=== PATIENT | female | born 1960 | race Caucasian/White ===

== ENCOUNTER 2016-10-28 08:45 | Observation (INO) | payer OTHER ==
[~2016-10-28] VITALS: Ht 162.6 cm; Wt 162.0 kg
[~2016-10-28 08:45] MED LIST: ALBUTEROL-200 PUFFS/ INH; AMIODARONE 200200 MG PO; ASPIRIN325 M1 PO; ATENOLOL25 MG PO; ATENOLOL50 MG PO; B COMPLETE1 EACH PO; B COMPLEX1 TA1 PO; BISOPROLOL FUMA10 MG PO; CARDIZEM120 MG PO; CIPRO 500MG TA500 MG PO; COREG12.5 MG PO; COREG25 MG PO; DIGOXIN0.125 MG PO; ELIQUIS5 MG PO; FUROSEMIDE80 MG PO; HYDROCHLOROTHIA25 M1 PO; HYDROCHLOROTHIA50 MG PO; KLOR-CON 1010 MEQ PO; KLOR-CON M2020 MEQ PO; LANOXIN0.125 MG PO; LASIX80 MG PO; LEVAQUIN750 MG PO; LIPITOR40 MG PO; LISINOPRIL 10MG10 MG PO; LISINOPRIL 5MG T5 MG PO; LORTAB 5/500 501 TAB PO; LOSARTAN POTASS50 MG PO; MASON NATURAL500 M1 PO; MEDROL 4MG. DOSE4 MG PO; MELOXICAM7.5 MG PO; METFORMIN 500M500 M1 PO; METFORMIN 500M500 MG PO; METOPROLOL25 MG PO; MULTI VITAMINS1 TAB PO; Monodox100 MG PO; NYSTATIN CREAM15 GM EX; OMNICEF 300 MG300 MG PO; OXYGEN IH; POTASSIUM CHLO20 ME2 PO; PRAVACHOL 40MG40 MG PO; PREDNISONE 10MG10 MG PO; PREDNISONE20 MG PO; SERTRALINE 50MG50 MG PO; SYMBICORT1 AE1 IH; TESSALON PERLE100 MG PO; TURMERIC500 MG PO; XARELTO10 MG PO
--- NOTE | 2016-10-28 08:50 | Emergency Room Report ---
History of Present Illness Time Seen by [id number] Presenting Problem in Triage Pt arrived: Presenting Problem: Onset of symptoms date/time:/ or onset unknown for: Treatment Prior to Arrival: [employer]RIAL [employer] Provided by: Sepsis Risk Assessment: Temp: B/P: MAP: Pulse: Resp: Recent fever? Clinical Suspician of Infection? Mental Status: Sepsis Risk: Have you (or family members/close friends) recently traveled outside the [place]? If Yes, where/when: Have you had exposure to infectious disease within the past month? TB? Other? Specify: Source patient, RN/MD, EMS Exam Limitations no limitations Comment Pt is here in the ER for evaluation from home via EMS c/o generalized weakness, difficulty mentating and having an increase in SOB. Pt presented as a stroke alert and went immediately to CT. CT head w/o contrast was negative for acute changes. 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 She last worked yesterday and was doing okay prior to going to bed. She wears O2 at night and CPAP. Pt woke up this morning feeling more SOB. She has a history of CHF/COPD. She denies chest pain. She also states she has been difficulty expressing her thoughts. No aphasia. No abdominal pain. Increase in chronic bilateral leg/pedal edema. Pt has not taken any of her morning medicines. 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) Penicillins (Mild, 07/03/16) codeine (Mild, 07/03/16) promethazine (Mild, 07/03/16) Home Medications Active Scripts Metformin HCl (Metformin) 500 MG PO BID #60 TAB Ref 2 Prov: 04/13/14 Nystatin (Nystatin Cream 15GM) 1 SALINA EX QID #30 GM Prov: 08/19/16 Prednisone (Prednisone 20MG Tab) 40 MG PO DAILY #14 TAB Prov: 08/19/16 Device (Oxygen (Concentrator)) 1 UNIT IH NIGHT ONLY #1 DEV Ref 5 Prov: 08/19/16 Reported Medications Apixaban (Eliquis) 5 MG PO BID BENZONATATE (Benzonatate) 100 MG PO TID PRN COUGH Furosemide (Furosemide) 40 MG PO BIDL BUDESONIDE/FORMOTEROL FUMARATE (Symbicort 160-4.5 Mcg Inhaler) 2 PUFF IH BID Meloxicam (Meloxicam 7.5MG) 7.5 MG PO DAILY Potassium Chloride (Klor-Con M20) 20 MEQ PO BID CINNAMON BARK (Cinnamon) 500 MG PO BID Turmeric Root Extract (Turmeric) 500 MG PO BID Vitamin B Complex (B Complete) 1 EACH PO DAILY Atorvastatin Calcium (Atorvastatin) 40 MG PO QHS Losartan Potassium (Losartan 50MG) 50 MG PO BID Bisoprolol Fumarate 10 MG PO BID History Medical History General CAD? No Angina: Yes [place]: No Hypertension? Yes Hyperlipidemia? Yes CHF? Yes DVT? No PE? No COPD? Yes Asthma? Yes Anemia? No GERD? No Gastric ulcers? No GI Bleed? No Hernia? No Thyroid Problems? No Hypothyroidism? No CVA? No Seizures? No Diabetes? Yes Insulin Dependent: No Insulin Pump: No Home FSBS? Yes Renal Insuffiency? No End Stage Renal Disease? No UTI? No Stones? No BPH? No GB Disease: No Nephritic Syndrome? No Asplenia? No Hepatitis? No Sickle Cell Disease? No Arthritis? No Migraines? No Cataracts? No Glaucoma? No MRSA? No HIV? No TB? No Anxiety? No Depression? No Cancer? No More? Yes Additional hx: RA Immunization Hx DT/Tetanus 1-4 Years Ago Flu Refused Pneumonia REFUSED Surgical Hx Previous Surgery?Y Tubal Ligation Tonsils R KNEE ARTROSCOPY WRIST R ELBOW Family History Family Hx Diabetes Yes CAD Yes Hypertension Yes Hyperlipidemia Yes Cancer No TB No Social History Smoking Hx Packs/day N/A Alcohol Alcohol: No Review of Systems All Other Systems Reviewed and Negative Constitutional see HPI, weakness Eyes denies no symptoms reported ENT denies: no symptoms reported. Respiratory see HPI, cough (occasional nonproductive), shortness of breath, wheezing Cardiovascular see HPI, denies chest pain, edema, denies syncope Gastrointestinal denies no symptoms reported Genitourinary denies: no symptoms reported. Musculoskeletal denies no symptoms reported Skin change in color (bilateral LE erythema) Psychiatric/Neurological denies no symptoms reported Physical Exam Vital Signs Vital Signs Date Time Temp Pulse Resp B/P Pulse O2 O2 Flow FiO2 Ox Delivery Rate 10/28 1105 79 16 130/74 100 4 10/28 1012 73 16 134/84 99 4 10/28 0927 95 10/28 0916 98.4 90 16 139/64 95 4 General Appearance mild distress (sob) Eye Exam - bilateral eye normal exam Ear, Nose, Throat normal ENT inspection Neck normal inspection, supple, full range of motion Respiratory Status Yes: trachea midline, chest symmetrical. No: respiratory distress. Lung Sounds posterior: wheezing. bilateral: decreased breath sounds. left: wheezing. Cardiovascular irregularly irregular, distant heart sounds Peripheral Pulses Pulses normal Yes Gastrointestinal normal bowel sounds, soft, no guarding, no rebound, obese Extremities (+) significant nonpitting edema to bilateral feet/ankles/legs extending to thighs bilaterally. Rectal deferred Pelvic deferred Neurologic alert, segment block layer II-XII nml as tested, normal exam, no motor/sensory deficits, oriented x 3, NIH stroke scale is 0 Glascow Coma Scale Glascow Coma Scale Response Value EYE response: 4 Spontaneously 4 MOTOR response: 6 OBEYS 6 VERBAL response: 5 Oriented & Converses 5 Total 15 Mental status normal mood/affect Skin chronic stasis changes to bilateral legs Medical Decision Making LABS/Meds/Orders Pt receiving controlled substance in ED? No Results/Orders Laboratory Tests 10/28/16 0950: Urine Color YELLOW, Urine Appearance CLEAR, Urine pH 5.5, Ur Specific [place] 1.010, Urine Protein NEGATIVE, Urine Ketones NEGATIVE, Urine Blood NEGATIVE, Urine Nitrate NEGATIVE, Urine Bilirubin NEGATIVE, Urine Urobilinogen 0.2, Ur Leukocyte Esterase NEGATIVE, Urine WBC OCC, Urine Bacteria 1+, Urine Mucus 2+, Urine Glucose NEGATIVE 10/28/16 0945: POC Glucose 134 H 10/28/16 0600: Creatine Kinase 119, CK-MB (CK-2) Rel Index 0.4, CK and CKMB Interp 0.5, Troponin I < 0.02 10/28/16 0600: Sodium 139, Potassium 5.5 H, Chloride 105, Carbon Dioxide 28, BUN 19 H, Creatinine 0.7, Estimated GFR (MDRD) 87, Glucose 133 H, Calcium 8.7 10/28/16 0600: B-Natriuretic Peptide 127 H 10/28/16 0600: Sodium 140, Potassium 5.5 H, Chloride 104, Carbon Dioxide 25, BUN 19 H, Creatinine 0.7, Estimated Creat Clear 225 H, Estimated GFR (MDRD) 87, Glucose 132 H, Calcium 8.8, Total Bilirubin 0.8, AST 38 H, ALT 25, Alkaline Phosphatase 114, Total Protein 7.4, Albumin 3.1 L, Globulin 4.3 H, Albumin/ Globulin Ratio 0.7 L, PT 11.4, INR 1.07, APTT 31.0, WBC 9.1, RBC 4.14 L, Hgb 12.1 L, Hct 39.0, MCV 94.3, RDW 14.7, Plt Count 281, MPV 5.7 L, Gran % 77.4, Gran # 7.0, Lymphocytes % 14.0, Monocytes % 4.3, Eosinophils % 3.7, Basophils % 0.5, Lymphocytes # 1.3, Monocytes # 0.4, Eosinophils # 0.3, Basophils # 0.1, PUBS MCHC 31.0 L, MCH 29.2 Current Medication Orders Sig/Melissa Start time Last Medication Dose Route Stop Time Status Admin Bumetanide 1 MG ONCE ONE 10/28 929 DC 10/28 IV 10/28 0931 0946 Furosemide 40 MG ONCE ONE 10/28 0930 DC 10/28 IV 10/28 0931 0946 Sodium Chloride 10 ML PRN PRN 10/28 0900 AC IV 10/29 0853 Orders Procedure Date/time Status DIET-NOTHING BY MOUTH 10/28 L Active CARDIAC ENZYMES 10/28 1300 Active Decision to admit 10/28 1110 Active BRAIN NATRIURETIC PEPTIDE 10/28 1024 Complete CARDIAC ENZYMES 10/28 1000 Complete FINGERSTICK BLOOD SUGAR 10/28 0945 Complete URINARY CATHETER INSERT 10/28 0919 Active URINALYSIS/COMPLETE 10/28 0919 Complete ELECTROCARDIOGRAM REQUEST 10/28 0914 Active PULSE OXIMETRY REQUEST 10/28 0914 Active IV SALINE LOCK 10/28 0914 Active OXYGEN PER NURSE 10/28 0914 Active RN OPERATING ROOM 10/28 0914 Active COMPLETE METABOLIC PANEL 10/28 0914 Complete ELECTROCARDIOGRAM REQUEST 10/28 0903 Active 12 LEAD EKG-BESSON (INITIAL) 10/28 0900 Active FSBS REQUEST BY CARE AREA 10/28 0853 Active CHEST-PORTABLE 10/28 0850 Active PARTIAL THROMBOPLASTIN TIME 10/28 0850 Complete PROTHROMBIN TIME 10/[address] HEAD REQ 10/28 0849 Complete CBC WITH AUTO DIFF 10/28 0849 Complete BASIC METABOLIC PROFILE 10/28 0849 Complete Laboratory Tests 10/28/16 0945: POC Glucose 134 10/28/16 0600: Creatine Kinase 119, CK-MB (CK-2) Rel Index 0.4, CK and CKMB Interp 0.5, Troponin I < 0.02 10/28/16 0600: Sodium 139, Potassium 5.5, Chloride 105, Carbon Dioxide 28, BUN 19, Creatinine 0.7, Estimated GFR (MDRD) 87, Glucose 133, Calcium 8.7 10/28/16 0600: Sodium 140, Potassium 5.5, Chloride 104, Carbon Dioxide 25, BUN 19, Creatinine 0.7, Estimated Creat Clear 225, Estimated GFR (MDRD) 87, Glucose 132, Calcium 8.8, Total Bilirubin 0.8, AST 38, ALT 25, Alkaline Phosphatase 114, Total Protein 7.4, Albumin 3.1, Globulin 4.3, Albumin/Globulin Ratio 0.7, PT 11.4, INR 1.07, APTT 31.0, WBC 9.1, RBC 4.14, Hgb 12.1, Hct 39.0, MCV 94.3, RDW 14.7, Plt Count 281, MPV 5.7, Gran % 77.4, Gran # 7.0, Lymphocytes % 14.0, Monocytes % 4.3 , Eosinophils % 3.7, Basophils % 0.5, Lymphocytes # 1.3, Monocytes # 0.4, Eosinophils # 0.3, Basophils # 0.1, PUBS MCHC 31.0, MCH 29.2 (DOBAY, III, D.O., KAROLY) 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 CHF changes with increase in lung markings and some blunting of left costophrenic angle. CT head (w/o contrast) CT interpretation by discussed w/radiologist (radiologist report reviewed.) CT Results normal/NAD, no acute changes. Consult MD Physician Consult Time Called 1110 Reason Admission Comments Case discussed with Dr. Vega and he has agreed to accept care/admission of patient. Pt admitted to observation with telemetry. Departure Departure Time of Disposition 1111 Disposition Still a Patient Clinical Impression Primary Impression: Acute congestive heart failure Qualifiers: Congestive heart failure type: unspecified congestive heart failure type Qualified Code: I50.9 - Heart failure, unspecified Secondary Impressions: Chronic atrial fibrillation, Generalized weakness, Peripheral edema, Shortness of breath Condition STABLE Discharge Counseling Counseled pt/family regarding diagnosis, test results, Need for admission. ED Critical Care Critical Care No at [id number]
[2016-10-28 09:04] LABS: HEMOGLOBIN 12.1 g/dL (12.2-16.2); LYMPH # 1.3 K/mm3 (0.7-4.5)
[2016-10-28 09:06] LABS: BUN 19 mg/dL (7-18); GFR (ESTIMATED) 87 ML/MIN (59-)
--- NOTE | 2016-10-28 09:13 | RADIOLOGY REPORT PS360 ---
CT HEAD W/O CONTRAST HISTORY: Facial tingling with speech problems, right facial droop STROKE ALERT ORDERING PHYSICIAN: Ga KAUR III PATIENT AGE: 56 years COMPARISON: 07/03/2016 TECHNIQUE: Axial images obtained without contrast. Brain and bone windows reviewed. FINDINGS: No midline shift, mass effect, intracranial hemorrhage, hydrocephalus, or extra-axial fluid collection is evident. There is some mild beam hardening artifact in this posterior fossa from the patient's neck less which could obscure subtle abnormalities. The calvarium has an unremarkable appearance. No mastoid effusion. Mild mucosal thickening of the ethmoid sinuses.. IMPRESSION: 1. No acute hemorrhage or midline shift. Unremarkable unenhanced CT head with some limitations from artifact in the posterior fossa which could obscure subtle abnormalities. 2. There is no evidence of intracranial hemorrhage, focal mass, or acute territorial infarction. A negative CT does not exclude an acute CVA. A follow-up head CT or MRI is recommended if neurological symptoms persist .
[2016-10-28 09:16] VITALS: BP 139/64
[2016-10-28 09:58] LABS: URINE BILIRUBIN - DIPSTICK NEGATIVE (NEG); URINE BLOOD NEGATIVE (NEG)
--- NOTE | 2016-10-28 11:47 | HISTORY AND PHYSICAL REPORT ---
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 Patient states she had difficulty mentating and felt somewhat cloudy mentally. In addition to this she felt like the RIGHT side of her face was sliding off. She has no history of stroke or TIA. She does have atrial fibrillation for which she takes Eliquis 5 mg twice a day. Her core inserter is Dr. Fernando Terry in [place]. Patient presented to the emergency department and was rapidly scanned to make sure she was not having a stroke. CT scan of the head was negative. Oxygen was applied to the patient which she does use at home. She slowly became more alert and at the time of my interview feels back to baseline mentally. She is does continue states she feels like she has a RIGHT facial abnormality although her exam has been normal. Workup as written been relatively unremarkable except for what appears to be mild hypervolemia on her chest x-ray. Patient has been given Lasix and Bumex and has put out 2 L of urine that is clear and yellow. Her feet are swollen but she states this is how they normally look after 5 consecutive days of work. She does not really have any complaint of shortness of breath. Past medical history: Family HX Family Hx Insignificant No Diabetes Yes CAD Yes Hypertension Yes Hyperlipidemia Yes Cancer No TB No Immunization HX DT/Tetanus 1-4 Years Ago Flu Refused Pneumonia REFUSED General CAD? No Angina: Yes [place]: No Hypertension? Yes Hyperlipidemia? Yes CHF? Yes DVT? No PE? No COPD? Yes Asthma? Yes Anemia? No GERD? No Gastric ulcers? No GI Bleed? No Hernia? No Thyroid Problems? No Hypothyroidism? No CVA? No Seizures? No Diabetes? Yes Insulin Dependent: No Insulin Pump: No Home FSBS? Yes Renal Insuffiency? No UTI? No Stones? No BPH? No GB Disease: No Nephritic Syndrome? No Asplenia? No Hepatitis? No Sickle Cell Disease? No Arthritis? No Migraines? No Cataracts? No Glaucoma? No MRSA? No HIV? No TB? No Anxiety? No Depression? No Cancer? No More? 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 Current home meds: Active Scripts Metformin HCl (Metformin) 500 MG PO BID #60 TAB Ref 2 Prov: 04/13/14 Nystatin (Nystatin Cream 15GM) 1 SALINA EX QID #30 GM Prov: 08/19/16 Prednisone (Prednisone 20MG Tab) 40 MG PO DAILY #14 TAB Prov: 08/19/16 Device (Oxygen (Concentrator)) 1 UNIT IH NIGHT ONLY #1 DEV Ref 5 Prov: 08/19/16 Reported Medications Apixaban (Eliquis) 5 MG PO BID BENZONATATE (Benzonatate) 100 MG PO TID PRN COUGH Furosemide (Furosemide) 40 MG PO BIDL BUDESONIDE/FORMOTEROL FUMARATE (Symbicort 160-4.5 Mcg Inhaler) 2 PUFF IH BID Meloxicam (Meloxicam 7.5MG) 7.5 MG PO DAILY Potassium Chloride (Klor-Con M20) 20 MEQ PO BID CINNAMON BARK (Cinnamon) 500 MG PO BID Turmeric Root Extract (Turmeric) 500 MG PO BID Vitamin B Complex (B Complete) 1 EACH PO DAILY Atorvastatin Calcium (Atorvastatin) 40 MG PO QHS Losartan Potassium (Losartan 50MG) 50 MG PO BID Bisoprolol Fumarate 10 MG PO BID Social Hx: Smoking HX Tobacco No Packs/day N/A Alcohol Alcohol: No Hx of Drug Use Drug Use? No Patien't marital status is Patient's support system is good Review of systems: Constitutional weakness. No: chills, diaphoresis, fever. Respiratory No: cough, orthopnea, shortness of breath. Cardiovascular no symptoms reported Gastrointestinal/Abdominal no symptoms reported Genitourinary no symptoms reported. Musculoskeletal no symptoms reported. Neurological Yes: weakness. Exam: Lab data for last 24 hours: Laboratory Tests 10/28/16 0950: Urine Color YELLOW, Urine Appearance CLEAR, Urine pH 5.5, Ur Specific [place] 1.010, Urine Protein NEGATIVE, Urine Ketones NEGATIVE, Urine Blood NEGATIVE, Urine Nitrate NEGATIVE, Urine Bilirubin NEGATIVE, Urine Urobilinogen 0.2, Ur Leukocyte Esterase NEGATIVE, Urine WBC OCC, Urine Bacteria 1+, Urine Mucus 2+, Urine Glucose NEGATIVE 10/28/16 0945: POC Glucose 134 H 10/28/16 0600: Creatine Kinase 119, CK-MB (CK-2) Rel Index 0.4, CK and CKMB Interp 0.5, Troponin I < 0.02 10/28/16 0600: Sodium 139, Potassium 5.5 H, Chloride 105, Carbon Dioxide 28, BUN 19 H, Creatinine 0.7, Estimated GFR (MDRD) 87, Glucose 133 H, Calcium 8.7 10/28/16 0600: B-Natriuretic Peptide 127 H 10/28/16 0600: Sodium 140, Potassium 5.5 H, Chloride 104, Carbon Dioxide 25, BUN 19 H, Creatinine 0.7, Estimated Creat Clear 225 H, Estimated GFR (MDRD) 87, Glucose 132 H, Calcium 8.8, Total Bilirubin 0.8, AST 38 H, ALT 25, Alkaline Phosphatase 114, Total Protein 7.4, Albumin 3.1 L, Globulin 4.3 H, Albumin/ Globulin Ratio 0.7 L, PT 11.4, INR 1.07, APTT 31.0, WBC 9.1, RBC 4.14 L, Hgb 12.1 L, Hct 39.0, MCV 94.3, RDW 14.7, Plt Count 281, MPV 5.7 L, Gran % 77.4, Gran # 7.0, Lymphocytes % 14.0, Monocytes % 4.3, Eosinophils % 3.7, Basophils % 0.5, Lymphocytes # 1.3, Monocytes # 0.4, Eosinophils # 0.3, Basophils # 0.1, PUBS MCHC 31.0 L, MCH 29.2 Admission vital signs: 1ST Vital Signs Result Date Time Pulse Ox 95 10/29 915 B/P 139/64 10/29 915 O2 Flow Rate 4 10/29 915 Temp 98.4 10/29 915 Pulse 90 10/29 915 Resp 16 10/29 915 Exam General appearance: alert, active, awake, no acute distress Eyes: conjunctiva clear, PERRLA ENT: mucous membranes moist Cardiovascular: irregularly irregular Respiratory: overall clear with faint expiratory wheeze in the LEFT posterior upper lung. Lung bases did not have any rales ABD: soft, no tenderness Genitourinary: catheter in place Extremities: edema (2+ bilateral feet and lower le) Plan: Problem List 1. Peripheral edema 2. Chronic atrial fibrillation 3. Acute congestive heart failure 4. Mental status change 5. Obstructive sleep apnea Plan: Patient appears mildly fluid overloaded and started having excellent response to diuretics. She will be admitted for observation and given additional doses of intravenous Lasix. There is a good chance she will be able to be discharged tomorrow. As the etiology of her mental status changes she will be admitted for observation. Patient may have become hypoxic overnight or even hypercapnic as she does use C Pap at home with oxygen attached. At this point she seems to return to baseline.
--- NOTE | 2016-10-28 12:14 | RADIOLOGY REPORT PS360 ---
CHEST-PORTABLE HISTORY: Shortness of breath with wheezing, CHF STROKE ALERT ORDERING PHYSICIAN: Ga KAUR III PATIENT AGE: 56 years COMPARISON: 08/14/2016 FINDINGS: There is cardiomegaly with mild pulmonary venous congestion suggesting mild CHF. No lobar consolidation or collapse.. The lungs are clear without infiltrates, suspicious nodules, or pleural effusions. No acute bony abnormalities. IMPRESSION: No change mild CHF
[2016-10-28 14:03] VITALS: BP 138/79
[2016-10-28 14:20] VITALS: BP 138/79
[2016-10-28 16:27] VITALS: BP 130/88
[2016-10-28 20:22] VITALS: BP 120/59
[2016-10-29 04:23] VITALS: BP 108/62
--- NOTE | 2016-10-29 07:46 | DISCHARGE SUMMARY STANDARD ---
Demographics Admit date: 10/28/16 Discharge date: 10/29/16 History of present illness History of present illness 56-year-old female with asthma, atrial fibrillation and morbid obesity presented to the emergency department after awakening around 7:30 this morning and not feeling RIGHT. Patient states she had difficulty mentating and felt somewhat cloudy mentally. In addition to this she felt like the RIGHT side of her face was sliding off. She has no history of stroke or TIA. She does have atrial fibrillation for which she takes Eliquis 5 mg twice a day. Her blueprint maker is Dr. Fernando Terry in [place]. Patient presented to the emergency department and was rapidly scanned to make sure she was not having a stroke. CT scan of the head was negative. Oxygen was applied to the patient which she does use at home. She slowly became more alert and at the time of my interview feels back to baseline mentally. She is does continue states she feels like she has a RIGHT facial abnormality although her exam has been normal. Workup as written been relatively unremarkable except for what appears to be mild hypervolemia on her chest x-ray. Patient has been given Lasix and Bumex and has put out 2 L of urine that is clear and yellow. Her feet are swollen but she states this is how they normally look after 5 consecutive days of work. She does not really have any complaint of shortness of breath. Hospital Course Hospital Course: Patient was admitted overnight as per Dr. Vega note. She was diureses to over 5 L of fluid and this morning feels much better. She feels her breathing is improved and she wishes to go home. Anterior lung mendiola are clear. Abdomen soft, heart rate irregular. Patient will be discharged home with her regular oxygen at home, I will ask that she stay home from work tomorrow, focus on low salt diet, followup with her blueprint maker scheduled and with her primary care office this week Discharge diagnoses Problem List 1. Peripheral edema 2. Chronic atrial fibrillation 3. Acute congestive heart failure 4. Mental status change 5. Obstructive sleep apnea Medications Medications: Discharge meds are as noted. Follow up Follow up in office in: 5 DAYS with: Jhonatan Vega MD at [phone]
--- NOTE | 2016-10-29 07:46 | DISCHARGE SUMMARY STANDARD ---
Demographics Admit date: 10/28/16 Discharge date: 10/29/16 History of present illness History of present illness 56-year-old female with asthma, atrial fibrillation and morbid obesity presented to the emergency department after awakening around 7:30 this morning and not feeling RIGHT. Patient states she had difficulty mentating and felt somewhat cloudy mentally. In addition to this she felt like the RIGHT side of her face was sliding off. She has no history of stroke or TIA. She does have atrial fibrillation for which she takes Eliquis 5 mg twice a day. Her check writer is Dr. Fernando Terry in [place]. Patient presented to the emergency department and was rapidly scanned to make sure she was not having a stroke. CT scan of the head was negative. Oxygen was applied to the patient which she does use at home. She slowly became more alert and at the time of my interview feels back to baseline mentally. She is does continue states she feels like she has a RIGHT facial abnormality although her exam has been normal. Workup as written been relatively unremarkable except for what appears to be mild hypervolemia on her chest x-ray. Patient has been given Lasix and Bumex and has put out 2 L of urine that is clear and yellow. Her feet are swollen but she states this is how they normally look after 5 consecutive days of work. She does not really have any complaint of shortness of breath. Hospital Course Hospital Course: Patient was admitted overnight as per Dr. Vega note. She was diureses to over 5 L of fluid and this morning feels much better. She feels her breathing is improved and she wishes to go home. Anterior lung mendiola are clear. Abdomen soft, heart rate irregular. Patient will be discharged home with her regular oxygen at home, I will ask that she stay home from work tomorrow, focus on low salt diet, followup with her check writer scheduled and with her primary care office this week Discharge diagnoses Problem List 1. Peripheral edema 2. Chronic atrial fibrillation 3. Acute congestive heart failure 4. Mental status change 5. Obstructive sleep apnea Medications Medications: Discharge meds are as noted. Follow up Follow up in office in: 5 DAYS with: Jhonatan Vega MD at [phone]
[2016-10-29 08:37] VITALS: BP 134/70
--- NOTE | 2016-10-29 09:20 | PHARMACY CLINIC NOTE ---
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 Patient's VTE score: 3 Patient's VTE Risk: LOW RISK Clinical trial participant? No VTE prophylaxis [id number] VTE prophylaxis ordered? Yes Type of prophylaxis/treatment: JUWAN (ON ELIQUIS (HOME MED)) at 0920
[2016-10-29 11:12] VITALS: BP 134/70
--- OUTSIDE RECORDS SUMMARY | 2016-10-30 15:04 | External Medical Summary Rpt ---
Author Author [employer] Organization [employer] Address Unknown Phone Unavailable Purpose Continuity of Care Document - through 2016
--- OUTSIDE RECORDS SUMMARY | 2016-10-30 15:04 | External Medical Summary Rpt ---
Author Author [employer] Barbosa, [employer] Organization [employer] Address Unknown Phone Unavailable
--- OUTSIDE RECORDS SUMMARY | 2016-10-30 15:04 | External Medical Summary Rpt ---
Demographics Preferred Language Libyan Marital Status Unknown Jehovah'S Witness Affiliation Unknown Race Unknown Ethnic Group Unknown Author Author , Organization [facility] Address Unknown Phone Unavailable Purpose Continuity of Care Document - through 2016 Immunization No patient found.
--- OUTSIDE RECORDS SUMMARY | 2016-10-30 15:04 | External Medical Summary Rpt ---
Author Author , Organization [facility] Address Unknown Phone Unavailable Purpose Continuity of Care Document - through 2016 Problems Code Diagnosis DOS Provider Status I48.2 CHRONIC ATRIAL FIBRILLATIO N I48.91 UNSPECIFIED ATRIAL FIBRILLATIO N I50.9 HEART FAILURE, UNSPECIFIED R06.00 DYSPNEA, UNSPECIFIED R06.02 SHORTNESS OF BREATH R07.9 CHEST PAIN, UNSPECIFIED R53.1 WEAKNESS R60.9 EDEMA, UNSPECIFIED
--- OUTSIDE RECORDS SUMMARY | 2016-10-30 15:04 | External Medical Summary Rpt ---
Demographics Preferred Language Namibian Marital Status Unknown Baptist Affiliation Unknown Race Unknown Ethnic Group Unknown Author Author , Organization [facility] Address Unknown Phone Unavailable Purpose Continuity of Care Document - through 2016 Immunization No patient found.
--- OUTSIDE RECORDS SUMMARY | 2016-10-30 15:05 | External Medical Summary Rpt ---
Demographics Preferred Language Mongolian Marital Status Unknown Mu-Ism Affiliation Unknown Race Unknown Ethnic Group Unknown Author Author , Organization [facility] Address Unknown Phone Unavailable Purpose Continuity of Care Document - through 2016 Immunization No patient found.
--- OUTSIDE RECORDS SUMMARY | 2016-10-30 15:05 | External Medical Summary Rpt ---
Demographics Preferred Language Iranian Marital Status Unknown Shinto Affiliation Unknown Race Unknown Ethnic Group Unknown Author Author , Organization [facility] Address Unknown Phone Unavailable Purpose Continuity of Care Document - through 2016 Immunization No patient found.
== END 2016-10-29 09:54 | disposition home or self-care (01) ==
LOC: ER 08:45 → 2ND 11:14
PROVIDERS: Emergency Medicine; Family Medicine
DX: I50.9 Heart failure, unspecified (principal); I10 Essential (primary) hypertension; I48.91 Unspecified atrial fibrillation; E11.9 Type 2 diabetes mellitus without complications; G47.33 Obstructive sleep apnea (adult) (pediatric); R41.82 Altered mental status, unspecified
CPT/HCPCS: G0378

== ENCOUNTER → 2017-01-10 | Outpatient (CLI) | payer OTHER ==
--- NOTE | 2017-01-17 10:37 | RADIOLOGY REPORT PS360 ---
DIG MAMM-DX MATY W/AVWS W/CAD CAD Screening COMPARISON: Digital mammograms 06/22/2011 INDICATION: There is no personal or family history of breast cancer. Patient was with possible new lung right breast TECHNIQUE: Standard CC and MLO images were obtained. R2 CAD reviewed. FINDINGS: The breasts are composed primarily of fat with very minimal scattered fibroglandular densities seen. Markers were placed on inner quadrant right breast the site of patient's complaint in the see no underlying abnormality, this area is essentially total fatty replacement. There are benign-appearing calcination is left breast and there are couple of tiny benign-appearing calcination right breast. There is no suspicious lesion and no suspicious microcalcifications. IMPRESSION: Fatty type breast parenchyma with no suspicious lesion seen recommend yearly follow-up BI-RADS CATEGORY: 2_Benign RECOMMENDED FOLLOWUP: 12M 12 MONTH FOLLOW-UP (A letter has been sent to the patient regarding results of the study.)
== END ==
LOC: RAD 12:55
DX: N63 Unspecified lump in breast (principal)
CPT/HCPCS: G0204

== ENCOUNTER 2017-03-02 14:27 | Observation (INO) | payer OTHER ==
[~2017-03-02] VITALS: Ht 165.1 cm; Wt 156.3 kg
[2017-03-02 14:29] VITALS: BP 157/106
[2017-03-02 14:47] LABS: HEMOGLOBIN 12.9 g/dL (12.2-16.2); LYMPH % 8.9 % (10-50.0)
[2017-03-02 15:09] LABS: BUN 16 mg/dL (7-18)
[2017-03-02 15:10] LABS: GFR (ESTIMATED) 65 ML/MIN (59-)
--- NOTE | 2017-03-02 15:21 | RADIOLOGY REPORT PS360 ---
CHEST-PORTABLE HISTORY: CHEST PAIN ORDERING PHYSICIAN: Hakan Zelaya MD PATIENT AGE: 56 years COMPARISON: 10/28/2016 FINDINGS: Cardiomegaly without failure. No lobar consolidation or collapse. No acute bony anomalies. IMPRESSION: Cardiomegaly
--- NOTE | 2017-03-02 15:54 | Emergency Room Report ---
History of Present Illness Time Seen by [id number] Presenting Problem in Triage Pt arrived:Wheelchair Presenting Problem:CHEST PAIN OFF AND ON SINCE SHE WOKE UP AT 0500. CARDIAC HISTORY. 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 N Clinical Suspician of Infection? N Mental Status: 1 - Regular (Normal Baseline) Sepsis Risk:Possible Sepsis Risk Have you (or family members/close friends) recently traveled outside the [place]? N If Yes, where/when: Have you had exposure to infectious disease within the past month? TB? Other? Specify: 56 years old white female with chronic atrial fibrillations on anticoagulation. She is ON DUAL blood pressure medications for rate control. She she had a recent heart cath with no blockage. She woke up this morning with a chest pressure and fast heart rate. Upon arrival to the ED her blood pressure was elevated. She was given IV fluids and treated with nitroglycerin paste that she states that has not helped her pain. She continues to have elevated systolic blood pressure. 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) Penicillins (Mild, 07/03/16) codeine (Mild, 07/03/16) promethazine (Mild, 07/03/16) Home Medications Active Scripts Metformin HCl (Metformin) 500 MG PO BID #60 TAB Ref 2 Prov: 04/13/14 Device (Oxygen (Concentrator)) 1 UNIT IH NIGHT ONLY #1 DEV Ref 5 Prov: 08/19/16 Reported Medications Apixaban (Eliquis) 5 MG PO BID BENZONATATE (Benzonatate) 100 MG PO TID PRN COUGH Furosemide (Furosemide) 40 MG PO BIDL BUDESONIDE/FORMOTEROL FUMARATE (Symbicort 160-4.5 Mcg Inhaler) 2 PUFF IH BID Meloxicam (Meloxicam 7.5MG) 7.5 MG PO DAILY Potassium Chloride (Klor-Con M20) 20 MEQ PO BID CINNAMON BARK (Cinnamon) 500 MG PO BID Turmeric Root Extract (Turmeric) 500 MG PO BID Vitamin B Complex (B Complete) 1 EACH PO DAILY Atorvastatin Calcium (Atorvastatin) 40 MG PO QHS Losartan Potassium (Losartan 50MG) 50 MG PO BID Bisoprolol Fumarate 10 MG PO BID History Medical History General CAD? No Angina: Yes [place]: No Hypertension? Yes Hyperlipidemia? Yes CHF? Yes DVT? No PE? No COPD? Yes Asthma? Yes Anemia? No GERD? No Gastric ulcers? No GI Bleed? No Hernia? No Thyroid Problems? No Hypothyroidism? No CVA? No Seizures? No Diabetes? Yes Insulin Dependent: No Insulin Pump: No Home FSBS? Yes Renal Insuffiency? No End Stage Renal Disease? No UTI? No Stones? No BPH? No GB Disease: No Nephritic Syndrome? No Asplenia? No Hepatitis? No Sickle Cell Disease? No Arthritis? No Migraines? No Cataracts? No Glaucoma? No MRSA? No HIV? No TB? No Anxiety? No Depression? No Cancer? No More? 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 Respiratory no symptoms reported Cardiovascular see HPI, chest pain, palpitations Gastrointestinal no symptoms reported Genitourinary no symptoms reported. Musculoskeletal no symptoms reported Skin no symptoms reported Psychiatric/Neurological no symptoms reported Physical Exam Vital Signs Vital Signs Date Time Temp Pulse Resp B/P Pulse O2 O2 Flow FiO2 Ox Delivery Rate 03/02 1536 95 20 175/90 95 2 03/02 1457 97 20 164/74 978 2 03/02 1429 98.6 96 20 157/106 97 2 - WBC >12,000 or <4,000 or 10% bands? 2 or more SIRS Criteria Met? B/P:175/90 MAP:123 Creatinine >2.0? UA output<0.5ml/kg/hr for 2 hrs? Platelet count >100,000? Lactate >2.0mmol/1? INR >1.2 or PTT > than 60 sec? Evidence of Organ Dysfunction? Provider documented clinical suspician of infection? N Sepsis Criteria Count: 2 Sepsis Risk: Possible Sepsis Risk General Appearance normal appearance, WD/WN Eye Exam - bilateral eye normal exam, bilateral eye PERRL, bilateral eye EOMI Ear, Nose, Throat hearing grossly normal, normal ENT inspection Neck normal inspection, non-tender, supple, full range of motion Respiratory Status Yes: trachea midline, chest symmetrical, non tender chest. No: respiratory distress. Lung Sounds bilateral: normal breath sounds, lungs clear. 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 No Comment The patient was given 500 mL of normal saline and nitroglycerin paste Results/Orders Laboratory Tests 03/02/17 1420: Sodium 140, Potassium 4.1, Chloride 99, Carbon Dioxide 32, BUN 16, Creatinine 0.9, Estimated Creat Clear 178, Estimated GFR (MDRD) 65, Glucose 164 H, Calcium 9.4, Total Bilirubin 0.4, AST 21, ALT 29, Alkaline Phosphatase 138 H, Creatine Kinase 35, CK-MB (CK-2) Rel Index 1.4, CK and CKMB Interp < 0.5, Troponin I < 0.02, B-Natriuretic Peptide 182 H, Total Protein 8.9 H, Albumin 3.6, Globulin 5.3 H, Albumin/Globulin Ratio 0.7 L, WBC 11.3 H, RBC 4.29, Hgb 12.9, Hct 38.2 , MCV 89.2, RDW 14.0, Plt Count 385, MPV 7.1 L, Gran % 84.1 H, Gran # 9.5 H, Lymphocytes % 8.9 L, Monocytes % 4.1, Eosinophils % 2.5, Basophils % 0.3, Lymphocytes # 1.0, Monocytes # 0.5, Eosinophils # 0.3, Basophils # 0.0, PUBS MCHC 33.7, MCH 30.0 Current Medication Orders Sig/Melissa Start time Last Medication Dose Route Stop Time Status Admin Diltiazem HCl 0 .STK-MED ONE 03/02 1546 DC PO Bisoprolol Fumarate 10 MG ONCE ONE 03/02 1545 DC PO 03/02 1546 Diltiazem HCl 120 MG ONCE ONE 03/02 1545 DC PO 03/02 1546 Sodium Chloride 10 ML PRN PRN 03/02 1500 AC IV 03/03 1452 Aspirin 324 MG ONCE ONE 03/02 1445 DC 03/02 PO 03/02 1446 1448 Aspirin 0 .STK-MED ONE 03/02 1445 DC .ROUTE Nitroglycerin 1 IN ONCE ONE 03/02 1445 DC 03/02 EX 03/02 1446 1449 Nitroglycerin 0 .STK-MED ONE 03/02 1445 DC .ROUTE Sodium Chloride 500 ML .Q1H 03/02 1445 DC 03/02 IV 03/02 1544 1447 Sodium Chloride 10 ML PRN PRN 03/02 1445 AC IV 03/03 1439 Sodium Chloride 500 ML .STK-MED ONE 03/02 1444 DC IV Orders Procedure Date/time Status Decision to admit 03/02 1542 Active IV SALINE LOCK 03/02 1452 Active ELECTROCARDIOGRAM REQUEST 03/02 1441 Active CBC WITH AUTO DIFF 03/02 1441 Complete CARDIAC ENZYMES 03/02 1441 Complete CHEM 12 PROFILE 03/02 1441 Complete BRAIN NATRIURETIC PEPTIDE 03/02 1441 Complete 12 LEAD EKG-SERASON (INITIAL) 03/02 UNK Active CM/EKG CM/EKG EKG ATRIAL FIBRILLATION RAPID VENTRICULAR RESPONSE 108/M WITH RIGHT BUNDLE- BRANCH BLOCK XRAY/CT/US XRAY/CT/US XRAY chest XR interpretation by reviewed by me, discussed w/radiologist Xray Results CARDIOMEGALY NO ACUTE Departure Departure Time of Disposition 1551 Disposition Still a Patient Clinical Impression Primary Impression: Chest pain Secondary Impressions: Afib, Cardiomegaly, Hypertension Condition STABLE Referrals Gary JOHNSTON,Jhonatan (Family) Additional Instructions I discussed with Dr. Vega is familiar with her condition he advised for diastolic and Cardizem addition of dizziness and admit for rule out myocardial infarction. Discharge Counseling Counseled pt/family regarding diagnosis, test results, medications/RX, follow up needs ED Critical Care Critical Care No If Critical Care minutes are documented, the time involved in the performance of seperately reportable procedures was not counted toward critical care time documented. I directly delivered medical care to this critically ill and/or injured patient. Timely evaluation and treatment was necessary to address the significant organ system(s) dysfunction present in this patient. at 1669
[2017-03-02 17:04] VITALS: BP 153/89
--- NOTE | 2017-03-02 17:54 | HISTORY AND PHYSICAL REPORT ---
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 Patient has known atrial fibrillation and identified that her heart rate was fast. She has undergone cardiac catheterization within the last year and has no obstructive coronary disease. Patient took her regular home medications but when her rapid heart rate did not improve nor did the chest pain she presented to the emergency department. In the ER first set of cardiac enzymes was negative. Chest x-ray was significant for cardiomegaly but no signs of heart failure. Patient was given fluids in the emergency department and her heart rate dropped from the 110s and 20s down to the 90s. Patient continued to have chest pain. Nitroglycerin paste was applied without significant improvement in chest pain. Despite better rate control patient continued to have chest pain and has been admitted for observation. Past medical history: Family HX Diabetes Yes CAD Yes Hypertension Yes Hyperlipidemia Yes Cancer No TB No Immunization HX DT/Tetanus 1-4 Years Ago Flu Refused Pneumonia Refuses General CAD? No Angina: Yes [place]: No Hypertension? Yes Hyperlipidemia? Yes CHF? Yes DVT? No PE? No COPD? Yes Asthma? Yes Anemia? No GERD? No Gastric ulcers? No GI Bleed? No Hernia? No Thyroid Problems? No Hypothyroidism? No CVA? No Seizures? No Diabetes? Yes Insulin Dependent: No Insulin Pump: No Home FSBS? Yes Renal Insuffiency? No UTI? No Stones? No BPH? No GB Disease: No Nephritic Syndrome? No Asplenia? No Hepatitis? No Sickle Cell Disease? No Arthritis? No Migraines? No Cataracts? No Glaucoma? No MRSA? No HIV? No TB? No Anxiety? No Depression? No Cancer? No More? 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 Current home meds: Active Scripts Metformin HCl (Metformin) 500 MG PO BID #60 TAB Ref 2 Prov: 04/13/14 Device (Oxygen (Concentrator)) 1 UNIT IH NIGHT ONLY #1 DEV Ref 5 Prov: 08/19/16 Reported Medications Apixaban (Eliquis) 5 MG PO BID BENZONATATE (Benzonatate) 100 MG PO TID PRN COUGH Furosemide (Furosemide) 40 MG PO BIDL BUDESONIDE/FORMOTEROL FUMARATE (Symbicort 160-4.5 Mcg Inhaler) 2 PUFF IH BID Meloxicam (Meloxicam 7.5MG) 7.5 MG PO DAILY Potassium Chloride (Klor-Con M20) 20 MEQ PO BID CINNAMON BARK (Cinnamon) 500 MG PO BID Turmeric Root Extract (Turmeric) 500 MG PO BID Vitamin B Complex (B Complete) 1 EACH PO DAILY Atorvastatin Calcium (Atorvastatin) 40 MG PO QHS Losartan Potassium (Losartan 50MG) 50 MG PO BID Bisoprolol Fumarate 10 MG PO BID Social Hx: Smoking HX Tobacco No Packs/day N/A Alcohol Alcohol: No Hx of Drug Use Drug Use? No Patien't marital status is Patient's support system is good Review of systems: Constitutional no symptoms reported. Respiratory No: shortness of breath, SOB with excertion, SOB at rest, wheezing. Cardiovascular chest pain, No edema, palpitations, No syncope Gastrointestinal/Abdominal no symptoms reported Genitourinary no symptoms reported. Musculoskeletal no symptoms reported. Neurological Yes: no symptoms reported. Exam: Lab data for last 24 hours: Laboratory Tests 03/02/17 1700: Troponin I < 0.02 03/02/17 1420: Sodium 140, Potassium 4.1, Chloride 99, Carbon Dioxide 32, BUN 16, Creatinine 0.9, Estimated Creat Clear 178, Estimated GFR (MDRD) 65, Glucose 164 H, Calcium 9.4, Total Bilirubin 0.4, AST 21, ALT 29, Alkaline Phosphatase 138 H, Creatine Kinase 35, CK-MB (CK-2) Rel Index 1.4, CK and CKMB Interp < 0.5, Troponin I < 0.02, B-Natriuretic Peptide 182 H, Total Protein 8.9 H, Albumin 3.6, Globulin 5.3 H, Albumin/Globulin Ratio 0.7 L, WBC 11.3 H, RBC 4.29, Hgb 12.9, Hct 38.2 , MCV 89.2, RDW 14.0, Plt Count 385, MPV 7.1 L, Gran % 84.1 H, Gran # 9.5 H, Lymphocytes % 8.9 L, Monocytes % 4.1, Eosinophils % 2.5, Basophils % 0.3, Lymphocytes # 1.0, Monocytes # 0.5, Eosinophils # 0.3, Basophils # 0.0, PUBS MCHC 33.7, MCH 30.0 Admission vital signs: 1ST Vital Signs Result Date Time Pulse Ox 97 03/02 1429 B/P 157/106 03/02 1429 O2 Flow Rate 2 03/02 1429 Temp 98.6 03/02 1429 Pulse 96 03/02 1429 Resp 20 03/02 1429 O2 Delivery OXYGEN 03/02 1704 Exam General appearance: normal appearance, alert, awake, obese Cardiovascular: irregularly irregular Respiratory: normal exam, clear to auscultation ABD: normal exam, non-distended, normal bowel sounds Extremities: normal exam Plan: Problem List 1. Chronic atrial fibrillation 2. Obstructive sleep apnea 3. Chest pain Plan: Patient has been admitted. A second set of cardiac enzymes will be ordered. Patient is artery received additional bisoprolol Cardizem in the emergency department and when necessary Cardizem has been ordered. Additional dose of bisoprolol will be ordered for this evening. Patient's been placed on a monitor and storage bin tender at 1753
[2017-03-02 19:38] VITALS: BP 144/71
[2017-03-02 19:59] VITALS: BP 144/71
[2017-03-02 20:00] VITALS: BP 144/71
[2017-03-02 23:53] VITALS: BP 128/70
[2017-03-03 04:47] VITALS: BP 108/54
--- NOTE | 2017-03-03 07:36 | ACUTE CARE PROGRESS NOTE (QUA) ---
Progress Notes Subjective Date 03/03/17 Time 0732 Note Patient reports no pain and feeling better. Heart rate is stayed in the 80s and 90s over night. Vital signs reviewed patient's heart rate remains irregular. Lungs are clear. Discharged home with increasing dose of Cardizem. Continue bisoprolol twice a day Assessment/Plan Problem List 1. Chronic atrial fibrillation 2. Obstructive sleep apnea 3. Chest pain Patient condition Improving Plan: initiate discharge plan This inpt stay is expected to cross 2 MNs from start of care No at 0719
--- NOTE | 2017-03-03 07:37 | Discharge Summary ---
Demographics Admit date: 03/02/17 Discharge date: 03/03/17 Discharge diagnoses Problem List 1. Chronic atrial fibrillation 2. Obstructive sleep apnea 3. Chest pain History of present illness History of present illness 56-year-old female awoke this morning with chest pressure in the upper LEFT chest and radiated into the LEFT side of the neck. Patient has known atrial fibrillation and identified that her heart rate was fast. She has undergone cardiac catheterization within the last year and has no obstructive coronary disease. Patient took her regular home medications but when her rapid heart rate did not improve nor did the chest pain she presented to the emergency department. In the ER first set of cardiac enzymes was negative. Chest x-ray was significant for cardiomegaly but no signs of heart failure. Patient was given fluids in the emergency department and her heart rate dropped from the 110s and 20s down to the 90s. Patient continued to have chest pain. Nitroglycerin paste was applied without significant improvement in chest pain. Despite better rate control patient continued to have chest pain and has been admitted for observation. Patient was admitted and given additional doses of bisoprolol 10 mg in the emergency department as well as in the evening. Repeat dose of Cardizem was also given in the emergency department. Parameters were set for additional doses of oral immediate release Cardizem which the patient did not require. She was admitted to the floor on telemetry and her heart rate initially was between the 90s and low 110s. Overnight heart rate decreased to the 80s and 90s and patient' s chest pain and neck pain resolved. Following morning on March 03 patient was discharged home Medications Medications: Discharge meds are as noted. Follow up Follow up in office in: as scheduled with: JAKE DOZIER at 0731
[2017-03-03] MEDS ORDERED: CARDIZEM CD300 M1 PO (07:38)
--- NOTE | 2017-03-03 07:41 | PHARMACY CLINIC NOTE ---
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 Patient's VTE score: 6 Patient's VTE Risk: MOD RISK Clinical trial participant? No VTE prophylaxis NQF [id number] VTE prophylaxis ordered? Yes Type of prophylaxis/treatment: Heparin (ELIQUIS ORDERED) at 0741
[2017-03-03 08:00] VITALS: BP 130/46
[2017-03-03 08:30] VITALS: BP 130/46
[2017-03-03 11:30] VITALS: BP 130/46
== END 2017-03-03 11:50 | disposition home or self-care (01) ==
LOC: ER 14:27 → 2ND 15:51 → ER 15:51 → 2ND 16:39
PROVIDERS: Emergency Medicine
DX: R07.9 Chest pain, unspecified (principal); I10 Essential (primary) hypertension; E11.9 Type 2 diabetes mellitus without complications; J44.9 Chronic obstructive pulmonary disease, unspecified; I48.2 Chronic atrial fibrillation; G47.33 Obstructive sleep apnea (adult) (pediatric)
CPT/HCPCS: G0378

== ENCOUNTER 2017-04-10 20:55 | Emergency (ER) | payer OTHER ==
[~2017-04-10] VITALS: Ht 165.1 cm; Wt 108.9 kg
[~2017-04-10 20:55] MED LIST changes: +CARDIZEM CD300 M1 PO
[2017-04-10] MEDS ORDERED: GABAPENTIN100 M1 PO (21:05)
[2017-04-10] MEDS ORDERED: VITAMIN C500 M1 PO (21:06)
[2017-04-10 21:24] LABS: HEMOGLOBIN 12.8 g/dL (12.2-16.2); LYMPH # 1.1 K/mm3 (0.7-4.5); LYMPH % 7.5 % (10-50.0)
--- NOTE | 2017-04-10 21:31 | Emergency Room Report ---
History of Present Illness Time Seen by 2055 Presenting Problem in Triage Pt arrived:Wheelchair Presenting Problem:PT REPORTS FEVER AND NOT BEING ABLE TO CONTROL HER BLADDER FOR 3 DAYS. 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 Y Clinical Suspician of Infection? N Mental Status: 1 - Regular (Normal Baseline) Sepsis Risk:Low Sepsis Risk Have you (or family members/close friends) recently traveled outside the [place]? N If Yes, where/when: Have you had exposure to infectious disease within the past month? N TB? Other? 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) Penicillins (Mild, 07/03/16) codeine (Mild, 07/03/16) promethazine (Mild, 07/03/16) Home Medications Active Scripts Metformin HCl (Metformin) 500 MG PO BID #60 TAB Ref 2 Prov: 04/13/14 Device (Oxygen (Concentrator)) 1 UNIT IH NIGHT ONLY #1 DEV Ref 5 Prov: 08/19/16 DILTIAZEM HCL (Cardizem Cd 300MG) 300 MG PO DAILY #30 CAP Ref 3 Prov: 03/03/17 Reported Medications Apixaban (Eliquis) 5 MG PO BID BENZONATATE (Benzonatate) 100 MG PO TID PRN COUGH Furosemide (Furosemide) 40 MG PO BIDL BUDESONIDE/FORMOTEROL FUMARATE (Symbicort 160-4.5 Mcg Inhaler) 2 PUFF IH BID Meloxicam (Meloxicam 7.5MG) 7.5 MG PO DAILY Potassium Chloride (Klor-Con M20) 20 MEQ PO BID CINNAMON BARK (Cinnamon) 500 MG PO BID Turmeric Root Extract (Turmeric) 500 MG PO BID Vitamin B Complex (B Complete) 1 EACH PO DAILY Atorvastatin Calcium (Atorvastatin) 40 MG PO QHS Losartan Potassium (Losartan 50MG) 50 MG PO BID Bisoprolol Fumarate 10 MG PO BID Gabapentin (Gabapentin 100MG) 100 MG PO BID Ascorbic Acid (Vitamin C) 1,000 MG PO DAILY History Medical History General CAD? No Angina: Yes PR: No Hypertension? Yes Hyperlipidemia? Yes CHF? Yes DVT? No PE? No COPD? Yes Asthma? Yes Anemia? No GERD? No Gastric ulcers? No GI Bleed? No Hernia? No Thyroid Problems? No Hypothyroidism? No CVA? No Seizures? No Diabetes? Yes Insulin Dependent: No Insulin Pump: No Home FSBS? Yes Renal Insuffiency? No End Stage Renal Disease? No UTI? No Stones? No BPH? No GB Disease: No Nephritic Syndrome? No Asplenia? No Hepatitis? No Sickle Cell Disease? No Arthritis? No Migraines? No Cataracts? No Glaucoma? No MRSA? No HIV? No TB? No Anxiety? No Depression? No Cancer? No More? 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 Respiratory denies cough Cardiovascular denies chest pain Gastrointestinal see HPI, denies diarrhea, nausea, denies vomiting Genitourinary see HPI, frequency. denies: dysuria, hesitancy, hematuria. Musculoskeletal denies joint pain, denies joint swelling Skin denies rash Psychiatric/Neurological denies headache, denies seizure Physical Exam Vital Signs Vital Signs Date Time Temp Pulse Resp B/P Pulse O2 O2 Flow FiO2 Ox Delivery Rate 04/100 58 24 153/79 92 04/10 2134 102.5 83 24 132/56 90 04/10 2059 100.6 58 22 147/96 90 - WBC >12,000 or <4,000 or 10% bands? 2 or more SIRS Criteria Met? B/P:132/56 MAP:113 Creatinine >2.0? UA output<0.5ml/kg/hr for 2 hrs? Platelet count >100,000? Lactate >2.0mmol/1? INR >1.2 or PTT > than 60 sec? Evidence of Organ Dysfunction? Provider documented clinical suspician of infection? N Sepsis Criteria Count: 1 Sepsis Risk: Low Sepsis Risk General Appearance no apparent distress Eye Exam - bilateral eye PERRL, bilateral eye EOMI Ear, Nose, Throat normal ENT inspection Neck supple Respiratory Status No: respiratory distress. 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 No Results/Orders Laboratory Tests 04/10/172128: Urine Color YELLOW, Urine Appearance SL CLOUDY, Urine pH 6.0, Ur Specific [place] 1.020, Urine Protein TRACE H, Urine Ketones NEGATIVE, Urine Blood 2+ H , Urine Nitrate POSITIVE H, Urine Bilirubin NEGATIVE, Urine Urobilinogen 1.0, Ur Leukocyte Esterase 1+ H, Urine RBC 3-5, Urine WBC 20-50, Ur Squamous Epith Cells 10-20, Urine Bacteria 4+, Urine Glucose NEGATIVE 04/10/172118: Sodium 134 L, Potassium 4.3, Chloride 99, Carbon Dioxide 27, BUN 19 H, Creatinine 1.0, Estimated Creat Clear 107, Estimated GFR (MDRD) 57 L, Glucose 163 H, Calcium 9.3, Total Bilirubin 0.6, AST 24, ALT 36, Alkaline Phosphatase 137 H, Total Protein 8.4 H, Albumin 3.4, Globulin 5.0 H, Albumin/Globulin Ratio 0.7 L, WBC 14.5 H, RBC 4.46, Hgb 12.8, Hct 39.2, MCV 87.9, RDW 14.5, Plt Count 286, MPV 7.1 L, Gran % 86.7 H, Gran # 12.6 H, Total Counted Pending, Lymphocytes % 7.5 L, Monocytes % 4.9, Eosinophils % 0.8, Basophils % 0.2, Neutrophils Pending, Lymphocytes (Manual) Pending, Lymphocytes # 1.1, Monocytes # 0.7, Eosinophils # 0.1, Basophils # 0.0, Platelet Estimate Pending, PUBS MCHC 32.8, MCH 28.8 Current Medication Orders Sig/Melissa Start time Last Medication Dose Route Stop Time Status Admin Acetaminophen 650 MG ONCE ONE 04/10 2215 AC 04/10 PO 04/10 Ceftriaxone Sodium 0 .STK-MED ONE 04/10 2210 DCr IV Sodium Chloride 50 ML .STK-MED ONE 04/10 2210 DC IV Acetaminophen 0 .STK-MED ONE 04/10 2208 DC PO Ceftriaxone Sodium 1 GM ONCE ONE 04/10 2200 r 04/10 Sodium Chloride 50 ML IV 04/10 Sodium Chloride 10 ML PRN PRN 04/10 2100 AC IV 04/11 2059 Orders Procedure Date/time Status CULTURE, URINE 04/10 2129 Active DIFFERENTIAL-WBC 04/10 2119 Active IV SALINE LOCK 04/10 2059 Active URINALYSIS/COMPLETE 04/10 2059 Complete COMPLETE METABOLIC PANEL 04/10 2059 Complete CBC WITH AUTO DIFF 04/10 2059 Active Departure Departure Time of Disposition 2200 Disposition DC Home or Self Care(routine) Clinical Impression Primary Impression: UTI (urinary tract infection) Qualifiers: Urinary tract infection type: acute cystitis Hematuria presence: without hematuria Qualified Code: N30.00 - Acute cystitis without hematuria Condition STABLE Referrals Jhonatan Vega MD (Family) Patient Instructions DI for Urinary Tract Infection (UTI) Additional Instructions fluids and use meds and see pcp for follow up and urine culture Discharge Counseling Counseled pt/family regarding diagnosis, test results, medications/RX, follow up needs Prescriptions Current Visit Scripts Ciprofloxacin HCl (Cipro 500MG TAB) 500 MG PO BID #14 TAB Phenazopyridine HCl (Pyridium) 200 MG PO TID #10 TAB ED Critical Care Critical Care No at 2216
[2017-04-10 21:33] LABS: URINE BILIRUBIN - DIPSTICK NEGATIVE (NEG); URINE BLOOD 2+ (NEG)
[2017-04-10] MEDS ORDERED: CIPRO 500MG TA500 MG PO ×2 (22:15→22:33)
[2017-04-10] MEDS ORDERED: PYRIDIUM200 M2 PO ×2 (22:15→22:33)
[2017-04-10 22:34] VITALS: BP 174/73
[2017-04-10 23:08] LABS: NEUTROPHILS 87 % (42-76)
--- OUTSIDE RECORDS SUMMARY | 2017-04-15 03:51 | External Medical Summary Rpt | CCD ---
Demographics Preferred Language Bulgarian Marital Status Unknown Yazidi Affiliation Unknown Race Unknown Ethnic Group Unknown Author Author , MENDY BROOKE Address Unknown Phone Immunization Unable to retrieve immunization data due to connection failure with Immunization Registry. Please try again later.
--- OUTSIDE RECORDS SUMMARY | 2017-04-15 03:51 | External Medical Summary Rpt | CCD ---
Author Author MENDY Address Unknown Phone [email or web address] Purpose Continuity of Care Document - 03-02-2017 through 2016
--- OUTSIDE RECORDS SUMMARY | 2017-04-15 03:51 | External Medical Summary Rpt | CCD ---
Author Author MENDY Address Unknown Phone [email or web address] Purpose Continuity of Care Document - 03-02-2017 through 2016
--- OUTSIDE RECORDS SUMMARY | 2017-04-15 03:51 | External Medical Summary Rpt ---
Author Author ROSIBELREJI Barbosa, [employer] Organization [employer] Address Unknown Phone Unavailable Results CBC W Auto Differential panel in Blood Observa Value Referen Units Interpr Notes Date tion ce etation Range Basophils 0 - 0.2 K/MM3 Normal No Mar 02 informati 2017 2:20 [#/volume on in PM ] in source Blood by data Automated count Basophils 0.1 - 2.0 % Normal No Mar 02 /100 informati 2017 2:20 leukocyte on in PM s in source Blood by data Automated count Eosinophi 0.0 - 0.4 K/mm3 Normal No Mar 02 ls informati 2017 2:20 [#/volume on in PM ] in source Blood by data Automated count Eosinophi 0.1 - % Normal No Mar 02 ls/100 12.0 informati 2016 2:20 leukocyte on in PM s in source Blood by data Automated count Granulocy 1.8 - 7.8 K/mm3 High No Mar 02 marco antonio informati 2017 2:20 [#/volume on in PM ] in source Blood by data Automated count Granulocy 37.0 - % High No Mar 02 marco antonio/100 80.0 informati 2017 2:20 leukocyte on in PM s in source Blood by data Automated count Hematocri 37.0 - % Normal No Mar 02 t [Volume 47.0 informati 2016 2:20 on in PM Fraction] source of Blood data Hemoglobi 12.2 - g/dL Normal No Mar 02 n 16.2 informati 2017 2:20 [Mass/vol on in PM ume] in source Blood data Lymphocyt 0.7 - 4.5 K/mm3 Normal No Mar 02 es informati 2017 2:20 [#/volume on in PM ] in source Unspecifi data ed specimen by Automated count Lymphocyt 10 - 50.0 % Low No Mar 02 es informati 2016 2:20 [#/volume on in PM ] in source Unspecifi data ed specimen by Automated count Erythrocy 27 - 31.2 pg Normal No Mar 02 te mean informati 2016 2:20 corpuscul on in PM ar source hemoglobi data n [Entitic mass] Erythrocy 31.8 - g/dl Normal No Mar 02 te mean 35.4 informati 2016 2:20 corpuscul on in PM ar source hemoglobi data n concentra tion [Mass/vol ume] by Automated count Erythrocy 82.2 - fl Normal No Mar 02 te mean 97.8 informati 2016 2:20 corpuscul on in PM ar volume source [Entitic data volume] by Automated count Monocytes 0.1 - 1.0 K/mm3 Normal No Mar 02 informati 2016 2:20 [#/volume on in PM ] in source Blood by data Automated count Monocytes 1.7 - 9.3 % Normal No Mar 02 /100 informati 2016 2:20 leukocyte on in PM s in source Blood by data Automated count Platelet 7.4 - fl Low No Mar 02 mean 10.4 informati 2016 2:20 volume on in PM [Entitic source volume] data in Blood by Automated count Platelets 142 - 424 K/mm3 No No Mar 02 informati informati 2016 2:20 [#/volume on in on in PM ] in source source Blood data data Erythrocy 4.2 - 5.4 M/mm3 Normal No Mar 02 marco antonio informati 2016 2:20 [#/volume on in PM ] in source Amniotic data fluid Erythrocy 11.5 - % Normal No Mar 02 te 17.5 informati 2016 2:20 distribut on in PM ion width source [Entitic data volume] by Automated count Leukocyte 4.8 - K/MM3 High No Mar 02 s 10.8 informati 2016 2:20 [#/volume on in PM ] in source Blood data
--- OUTSIDE RECORDS SUMMARY | 2017-04-15 03:51 | External Medical Summary Rpt | CCD ---
Demographics Preferred Language Japanese Marital Status Unknown Yarsani Affiliation Unknown Race Unknown Ethnic Group Unknown Author Author , MENDY BROOKE Address Unknown Phone Immunization Unable to retrieve immunization data due to connection failure with Immunization Registry. Please try again later.
== END 2017-04-10 22:38 | disposition home or self-care (01) ==
LOC: ER 20:55
PROVIDERS: Emergency Medicine
DX: N30.00 Acute cystitis without hematuria (principal); E11.65 Type 2 diabetes mellitus with hyperglycemia; Z79.84 Long term (current) use of oral hypoglycemic drugs; Z88.0 Allergy status to penicillin; Z88.6 Allergy status to analgesic agent; I10 Essential (primary) hypertension; J44.9 Chronic obstructive pulmonary disease, unspecified

== ENCOUNTER 2017-06-02 13:02 | Emergency (ER) | payer OTHER ==
[~2017-06-02] VITALS: Ht 165.1 cm; Wt 143.8 kg
[~2017-06-02 13:02] MED LIST changes: +GABAPENTIN100 M1 PO; +LEVAQUIN500 MG PO; +PYRIDIUM200 M2 PO; +VITAMIN C500 M1 PO
--- OUTSIDE RECORDS SUMMARY | 2017-06-02 13:14 | External Medical Summary Rpt | CCD ---
Author Author , MENDY BROOKE Address Unknown Phone [email or web address] Purpose Continuity of Care Document - 03-02-2017 through 2016 Problems Code Diagnosis DOS Provider Status I10 ESSENTIAL (PRIMARY) HYPERTENSIO N I48.2 CHRONIC ATRIAL FIBRILLATIO N I48.91 UNSPECIFIED ATRIAL FIBRILLATIO N I50.9 HEART FAILURE, UNSPECIFIED I51.7 CARDIOMEGAL Y J20.9 ACUTE BRONCHITIS, UNSPECIFIED N39.0 URINARY TRACT INFECTION, SITE NOT SPECIFIED R06.00 DYSPNEA, UNSPECIFIED R06.02 SHORTNESS OF BREATH R07.9 CHEST PAIN, UNSPECIFIED R53.1 WEAKNESS R60.9 EDEMA, UNSPECIFIED Results Labs Lab Lab Date Result Refere Interp Status Commen Order Detail nces retati t Range on CBC w auto diff (04-27-2017 19:30) Automat = 0.0 0-0.2 complet ed 017 K/MM3 ed blood 19:30 basophi l count (count/ vo Baso % = 0.4 % 0.1-2.0 complet 017 ed 19:30 Automat = 0.4 0.0-0.4 complet ed 017 K/mm3 ed blood 19:30 eosinop hil count Automat = 3.4 % 0.1-12. complet ed 017 0 ed blood 19:30 eosinop hils/10 0 leukocy t Blood = 9.4 1.8-7.8 complet granulo 017 K/mm3 ed cytes 19:30 automat ed count (numb Granulo = 76.9 37.0-80 complet cyte 017 % .0 ed percent 19:30 age Blood = 39.7 37.0-47 complet hematoc 017 % .0 ed rit 19:30 (volume fractio n) Blood = 12.6 12.2-16 complet hemoglo 017 g/dL .2 ed bin 19:30 measure ment (mass/v olum Absolut = 1.8 0.7-4.5 complet e 017 K/mm3 ed lymphoc 19:30 yte count Lymphoc = 14.8 10-50.0 complet yte 017 % ed count, 19:30 blood, automat ed Mean = 28.9 27-31.2 complet corpusc 017 pg ed ular 19:30 hemoglo bin (MCH) determ Automat = 31.8 31.8-35 complet ed 017 g/dl .4 ed erythro 19:30 cyte mean corpusc ular h Automat = 90.7 82.2-97 complet ed 017 fl .8 ed erythro 19:30 cyte mean corpusc ular v Absolut = 0.6 0.1-1.0 complet e 017 K/mm3 ed monocyt 19:30 e count [place] % = 4.5 % 1.7-9.3 complet 017 ed 19:30 Automat = 7.1 7.4-10. complet ed 017 fl 4 ed blood 19:30 platele t mean volume jef Blood = 418 142-424 complet platele 017 K/mm3 ed t count 19:30 Red = 4.38 4.2-5.4 complet blood 017 M/mm3 ed cell 19:30 count Automat = 14.3 11.5-17 complet ed 017 % .5 ed erythro 19:30 cyte distrib ution width Blood = 12.2 4.8-10. complet leukocy 017 K/MM3 8 ed marco antonio 19:30 count (number /volume ) Blood lactic acid measurement (moles/vol (04-27-2017 19:30) Blood = 1.9 0.4-2.0 complet lactic 017 mmol/L ed acid 19:30 measure ment (moles/ vol Cardiac enzymes (04-27-2017 19:30) Serum < 0.5 0.0-3.6 complet or 017 ng/mL ed plasma 19:30 creatin e kinase MB measu Serum = 1.5 0-4.0 complet or 017 U/L ed plasma 19:30 creatin e kinase MB (CK-M Serum = 34 26-192 complet or 017 U/L ed plasma 19:30 creatin e kinase measure m Serum < 0.02 0.00-0. complet or 017 ng/mL 06 ed plasma 19:30 troponi n i.cardi ac measu Comprehensive metabolic panel (04-27-2017 19:30) Serum = 0.7 1.1-1.8 complet or 017 ed plasma 19:30 albumin /globul in mass ra Serum = 3.6 3.4-5.0 complet or 017 gm/dL ed plasma 19:30 albumin measure ment (mas Serum = 128 46-116 complet or 017 U/L ed plasma 19:30 alkalin e phospha tase jef Serum = 0.3 0.2-1.0 complet or 017 mg/dL ed plasma 19:30 total bilirub in measure m Serum = 16 7-18 complet or 017 mg/dL ed plasma 19:30 urea nitroge n measure men Serum = 9.5 8.5-10. complet or 017 mg/dL 1 ed plasma 19:30 calcium measure ment (mas Serum = 103 98-107 complet or 017 mmoL/L ed plasma 19:30 chlorid e measure ment (mo Carbon = 31 21.0-32 complet dioxide 017 mmoL/L .0 ed 19:30 measure ment Serum = 0.9 0.55-1. complet or 017 mg/dL 02 ed plasma 19:30 creatin ine measure ment ( Estimat = 168 50-200 complet ion of 017 ML/MIN ed creatin 19:30 ine renal clearan ce Estimat = 65 59- complet ed 017 ML/MIN ed glomeru 19:30 lar filtrat ion rate (GF Comment: REFERENCE RANGE: >60 ML/MIN/1.73 SQUARE METERS Comment: If this patient is -[place], then multiply the Comment: result by 1.210. Serum = 5.1 1.3-3.2 complet globuli 017 gm/dL ed n 19:30 measure ment (mass/v olume) Serum = 114 74-106 complet or 017 mg/dL ed plasma 19:30 glucose measure ment (mas Serum = 4.8 3.5-5.1 complet potassi 017 mmoL/L ed um 19:30 measure ment Serum = 141 136-145 complet sodium 017 mmoL/L ed measure 19:30 ment Serum = 19 15-37 complet or 017 U/L ed plasma 19:30 asparta te aminotr ansfera ALT = 23 12-78 complet (SGPT) 017 U/L ed ser/chandni 19:30 s Protein = 8.7 6.4-8.2 complet total 017 gm/dL ed ser/chandni 19:30 s D-dimer (04-27-2017 19:30) D-dimer = 508 0-400 complet 017 ng/mL ed 19:30 Comment: NOTIFICATION RESULT Comment: The D-Dimer values are presented in units of mass(ng/mL) of Comment: D-Dimer units(DDU). Comment: Comment: This test has been FDA approved as an aid in the assessment Comment: and evaluation of suspected DIC, and thromboembolic events Comment: including PE and DVT. However, it does not have approval Comment: for cut-off values for the exclusion of these conditions. Amylase ser/plas (04-27-2017 19:30) Amylase = 48 25-115 complet 017 U/L ed ser/chandni 19:30 s Brain natriuretic peptide (04-27-2017 19:30) Brain = 206 0-100 complet natriur 017 pg/mL ed etic 19:30 peptide Lipase measurement (04-27-2017 19:30) Lipase = 162 73-393 complet measure 017 U/L ed ment 19:30 Urinalysis with microscopy (04-10-2017 21:29) Erythro 3-5 3-5 0 complet cytes 017 L ed detecti 21:29 rbc/hpf on in urine sedimen t Urine = 1.020 1.005-1 complet specifi 017 .030 ed c 21:29 gravity measure ment [place] 10-20 0-5 complet s 017 10-20 L ed epithel 21:29 #/hpf ial cells detecti on in u Urine 1.0 1.0 NEG complet urobili 017 L ed nogen 21:29 E.U./dL detecti on by test str Urine 20 - 50 O complet leukocy 017 ed marco antonio 21:29 wbc/hpf count (number /volume ) Urine SL CLEAR complet appeara 017 CLOUDY ed nce 21:29 SL determi CLOUDY nation L Bacteri 4+ 4+ L O complet a 017 ed detecti 21:29 on in urine sedimen t by Urine NEGATIV NEG complet total 017 E ed bilirub 21:29 NEGATIV in E L detecti on by test Urine 2+ 2+ L NEG complet blood 017 ed detecti 21:29 on Urine YELLOW YELLOW complet color 017 YELLOW ed 21:29 L Glucose = NEG complet ur 017 NEGATIV ed test 21:29 E strip Urine NEGATIV NEG complet ketones 017 E ed 21:29 NEGATIV detecti E L on by mg/dL automat ed marco antonio Mucus 1+ 1+ L NEG complet detecti 017 ed on in 21:29 urine sedimen t by lig Urine POSITIV NEG complet nitrite 017 E ed 21:29 POSITIV detecti E L on by test strip Urine = 6.0 5.0-8.5 complet pH 017 ed 21:29 Urine = TRACE NEG complet protein 017 mg/dL ed 21:29 measure ment by automat ed t Urinalysis dipstick W Reflex Microscopic panel in Urine (04-10-2017 21:29) Bacteri 4+ O complet a 017 ed [Presen 21:29 ce] in Urine sedimen t by Light microsc opy Erythro 3-5 0 complet cytes 017 ed [Presen 21:29 ce] in Urine sedimen t by Light microsc opy Epithel 10-20 0#/hp complet ial 017 f - ed cells.s 21:29 5#/hp quamous f [Presen ce] in Urine sedimen t by Microsc opy high power field Leukocy 20-50 O complet marco antonio 017 wbc/hpf ed [#/volu 21:29 me] in Urine Urinalysis dipstick W Reflex Microscopic panel in Urine (04-10-2017 21:29) Appeara SL CLEAR complet nce of 017 CLOUDY ed Urine 21:29 Bilirub NEGATIV NEG complet in 017 E ed [Presen 21:29 ce] in Urine by Test strip Erythro 2+ NEG Abnorma complet cytes 017 l ed [Presen 21:29 ce] in Urine Color YELLOW YELLOW complet of 017 ed Urine 21:29 Ketones NEGATIV NEG complet 017 E ed [Presen 21:29 ce] in Urine by Automat ed test strip Mucus 1+ NEG Abnorma complet [Presen 017 l ed ce] in 21:29 Urine sedimen t by Light microsc opy Nitrite POSITIV NEG Abnorma complet 017 E l ed [Presen 21:29 ce] in Urine by Test strip Urobili 1.0 NEG complet nogen 017 ed [Presen 21:29 ce] in Urine by Test strip Comprehensive metabolic panel (04-10-2017 21:19) Serum = 0.7 1.1-1.8 complet or 017 ed plasma 21:19 albumin /globul in mass ra Serum = 3.4 3.4-5.0 complet or 017 gm/dL ed plasma 21:19 albumin measure ment (mas Serum = 137 46-116 complet or 017 U/L ed plasma 21:19 alkalin e phospha tase jef Serum = 0.6 0.2-1.0 complet or 017 mg/dL ed plasma 21:19 total bilirub in measure m Serum = 19 7-18 complet or 017 mg/dL ed plasma 21:19 urea nitroge n measure men Serum = 9.3 8.5-10. complet or 017 mg/dL 1 ed plasma 21:19 calcium measure ment (mas Serum = 99 98-107 complet or 017 mmoL/L ed plasma 21:19 chlorid e measure ment (mo Carbon = 27 21.0-32 complet dioxide 017 mmoL/L .0 ed 21:19 measure ment Serum = 1.0 0.55-1. complet or 017 mg/dL 02 ed plasma 21:19 creatin ine measure ment ( Estimat = 107 50-200 complet ion of 017 ML/MIN ed creatin 21:19 ine renal clearan ce Estimat = 57 59- complet ed 017 ML/MIN ed glomeru 21:19 lar filtrat ion rate (GF Comment: REFERENCE RANGE: >60 ML/MIN/1.73 SQUARE METERS Comment: If this patient is -[place]osoth[place], then multiply the Comment: result by 1.210. Serum = 5.0 1.3-3.2 complet globuli 017 gm/dL ed n 21:19 measure ment (mass/v olume) Serum = 163 74-106 complet or 017 mg/dL ed plasma 21:19 glucose measure ment (mas Serum = 4.3 3.5-5.1 complet potassi 017 mmoL/L ed um 21:19 measure ment Serum = 134 136-145 complet sodium 017 mmoL/L ed measure 21:19 ment Serum = 24 15-37 complet or 017 U/L ed plasma 21:19 asparta te aminotr ansfera ALT = 36 12-78 complet (SGPT) 017 U/L ed ser/chandni 21:19 s Protein = 8.4 6.4-8.2 complet total 017 gm/dL ed ser/chandni 21:19 s CBC w auto diff (04-10-2017 21:19) Automat = 0.0 0-0.2 complet ed 017 K/MM3 ed blood 21:19 basophi l count (count/ vo Baso % = 0.2 % 0.1-2.0 complet 017 ed 21:19 Automat = 0.1 0.0-0.4 complet ed 017 K/mm3 ed blood 21:19 eosinop hil count Automat = 0.8 % 0.1-12. complet ed 017 0 ed blood 21:19 eosinop hils/10 0 leukocy t Blood = 12.6 1.8-7.8 complet granulo 017 K/mm3 ed cytes 21:19 automat ed count (numb Granulo = 86.7 37.0-80 complet cyte 017 % .0 ed percent 21:19 age Blood = 39.2 37.0-47 complet hematoc 017 % .0 ed rit 21:19 (volume fractio n) Blood = 12.8 12.2-16 complet hemoglo 017 g/dL .2 ed bin 21:19 measure ment (mass/v olum Absolut = 1.1 0.7-4.5 complet e 017 K/mm3 ed lymphoc 21:19 yte count Lymphoc = 7.5 % 10-50.0 complet yte 017 ed count, 21:19 blood, automat ed Mean = 28.8 27-31.2 complet corpusc 017 pg ed ular 21:19 hemoglo bin (MCH) determ Automat = 32.8 31.8-35 complet ed 017 g/dl .4 ed erythro 21:19 cyte mean corpusc ular h Automat = 87.9 82.2-97 complet ed 017 fl .8 ed erythro 21:19 cyte mean corpusc ular v Absolut = 0.7 0.1-1.0 complet e 017 K/mm3 ed monocyt 21:19 e count [place] % = 4.9 % 1.7-9.3 complet 017 ed 21:19 Automat = 7.1 7.4-10. complet ed 017 fl 4 ed blood 21:19 platele t mean volume jef Blood = 286 142-424 complet platele 017 K/mm3 ed t count 21:19 Red = 4.46 4.2-5.4 complet blood 017 M/mm3 ed cell 21:19 count Automat = 14.5 11.5-17 complet ed 017 % .5 ed erythro 21:19 cyte distrib ution width Blood = 14.5 4.8-10. complet leukocy 017 K/MM3 8 ed marco antonio 21:19 count (number /volume ) Differential panel, method unspecified - (04-10-2017 21:19) Automat = 3 % 0-8 complet ed 017 ed blood 21:19 band neutrop hil percent a LYMPH 7 % 10-50 complet 017 ed 21:19 Monocyt = 1 % 2-9 complet e % 017 ed 21:19 Platele NORMAL complet t 017 NORMAL ed estimat 21:19 L e Blood 1+ 1+ L complet poikilo 017 ed cytosis 21:19 detecti on by light Neutrop = 87 % 42-76 complet hil 017 ed count 21:19 Blood = 100 complet total 017 #CELLS ed cell 21:19 count Manual = 2 % 0-3 complet blood 017 ed eosinop 21:19 hils/10 0 leukocy marco antonio Differential panel, method unspecified - (04-10-2017 21:19) LYMPH 7 % 10% - Low complet 017 50% ed 21:19 Platele NORMAL complet ts 017 ed [Presen 21:19 ce] in Blood by Light microsc opy [place] 1+ complet cytosis 017 ed 21:19 [Presen ce] in Blood by Light microsc opy
--- OUTSIDE RECORDS SUMMARY | 2017-06-02 13:14 | External Medical Summary Rpt | CCD ---
Author Author , MENDY BROOKE Address Unknown Phone [email or web address] Purpose Continuity of Care Document - 03-02-2017 [...] 017 K/mm3 ed monocyt 19:30 e count [place] % = 4.5 % 1.7-9.3 complet 017 [...] SQUARE METERS Comment: If this patient is -[place], then multiply the Comment: result by 1.210. [...] SQUARE METERS Comment: If this patient is -[place], then multiply the Comment: result by 1.210. [...] 017 K/mm3 ed monocyt 21:19 e count [place] % = 4.9 % 1.7-9.3 complet 017 [...]
--- OUTSIDE RECORDS SUMMARY | 2017-06-02 13:15 | External Medical Summary Rpt ---
Author Author MENDY Barbosa, [employer] Address Unknown Phone Unavailable Results Amylase [Enzymatic activity/volume] in Serum or Plasma Observa Value Referen Units Interpr Notes Date tion ce etation Range Amylase 25 - 115 U/L Normal No Apr 27 [Enzymati informati 2016 7:30 c on in PM activity/ source volume] data in Serum or Plasma Natriutietic peptide B [Mass/volume] in Serum or Plasma Observa Value Referen Units Interpr Notes Date tion ce etation Range Natriutie 0 - 100 pg/mL High No Apr 27 tic informati 2016 7:30 peptide B on in PM source [Mass/vol data ume] in Serum or Plasma Lipase [Enzymatic activity/volume] in Serum or Plasma Observa Value Referen Units Interpr Notes Date tion ce etation Range Lipase 73 - 393 U/L Normal No Apr 27 [Enzymati informati 2017 7:30 c on in PM activity/ source volume] data in Serum or Plasma Fibrin D-dimer FEU [Mass/volume] in Platelet poor plasma Observa Value Referen Units Interpr Notes Date tion ce etation Range Fibrin 0 - 400 ng/mL High Apr 27 D-dimer alert NOTIFICAT 2016 7:30 FEU ION PM [Mass/vol RESULT ume] in The Platelet D-Dimer poor values plasma are presented in units of mass(ng/m L) ofD-Dimer units(DDU ).This test has been FDA approved as an aid in the assessmen tand evaluatio n of suspected DIC, and thromboem bolic eventsinc luding PE and DVT. However, it does not have approvalf or cut-off values for the exclusion of these condition s. Lactate [Moles/volume] in Blood Observa Value Referen Units Interpr Notes Date tion ce etation Range Lactate 0.4 - 2.0 mmol/L Normal No Apr 27 [Moles/vo informati 2016 7:30 lume] in on in PM Blood source data CBC W Auto Differential panel in Blood Observa Value Referen Units Interpr Notes Date tion ce etation Range Basophils 0 - 0.2 K/MM3 Normal No Apr 27 informati 2016 7:30 [#/volume on in PM ] in source Blood by data Automated count Basophils 0.1 - 2.0 % Normal No Apr 27 / informati 2016 7:30 leukocyte on in PM s in source Blood by data Automated count Eosinophi 0.0 - 0.4 K/mm3 Normal No Apr 27 ls informati 2016 7:30 [#/volume on in PM ] in source Blood by data Automated count Eosinophi 0.1 - % Normal No Apr 27 ls/100 12.0 informati 2016 7:30 leukocyte on in PM s in source Blood by data Automated count Granulocy 1.8 - 7.8 K/mm3 High No Apr 27 marco antonio informati 2016 7:30 [#/volume on in PM ] in source Blood by data Automated count Granulocy 37.0 - % Normal No Apr 27 marco antonio/100 80.0 informati 2016 7:30 leukocyte on in PM s in source Blood by data Automated count Hematocri 37.0 - % Normal No Apr 27 t [Volume 47.0 informati 2016 7:30 on in PM Fraction] source of Blood data Hemoglobi 12.2 - g/dL Normal No Apr 27 n 16.2 informati 2016 7:30 [Mass/vol on in PM ume] in source Blood data Lymphocyt 0.7 - 4.5 K/mm3 Normal No Apr 27 es informati 2016 7:30 [#/volume on in PM ] in source Unspecifi data ed specimen by Automated count Lymphocyt 10 - 50.0 % Normal No Apr 27 es informati 2016 7:30 [#/volume on in PM ] in source Unspecifi data ed specimen by Automated count Erythrocy 27 - 31.2 pg Normal No Apr 27 te mean informati 2016 7:30 corpuscul on in PM ar source hemoglobi data n [Entitic mass] Erythrocy 31.8 - g/dl Normal No Apr 27 te mean 35.4 informati 2016 7:30 corpuscul on in PM ar source hemoglobi data n concentra tion [Mass/vol ume] by Automated count Erythrocy 82.2 - fl Normal No Apr 27 te mean 97.8 informati 2016 7:30 corpuscul on in PM ar volume source [Entitic data volume] by Automated count Monocytes 0.1 - 1.0 K/mm3 Normal No Apr 27 informati 2016 7:30 [#/volume on in PM ] in source Blood by data Automated count Monocytes 1.7 - 9.3 % Normal No Apr 27 /100 informati 2016 7:30 leukocyte on in PM s in source Blood by data Automated count Platelet 7.4 - fl Low No Apr 27 mean 10.4 informati 2016 7:30 volume on in PM [Entitic source volume] data in Blood by Automated count Platelets 142 - 424 K/mm3 No No Apr 27 informati informati 2016 7:30 [#/volume on in on in PM ] in source source Blood data data Erythrocy 4.2 - 5.4 M/mm3 Normal No Apr 27 marco antonio informati 2016 7:30 [#/volume on in PM ] in source Amniotic data fluid Erythrocy 11.5 - % Normal No Apr 27 te 17.5 informati 2016 7:30 distribut on in PM ion width source [Entitic data volume] by Automated count Leukocyte 4.8 - K/MM3 High No Apr 27 s 10.8 informati 2016 7:30 [#/volume on in PM ] in source Blood data Urinalysis dipstick W Reflex Microscopic panel in Urine Observa Value Referen Units Interpr Notes Date tion ce etation Range Appeara SL CLEAR No No No Apr 10 nce of CLOUDY informa informa informa 2016 Urine tion in tion in tion in 9:29 PM source source source data data data Bacteri 4+ O No No No Apr 10 a informa informa informa 2016 [Presen tion in tion in tion in 9:29 PM ce] in source source source Urine data data data sedimen t by Light microsc opy Bilirub NEGATIV NEG No No No Apr 10 in E informa informa informa 2016 [Presen tion in tion in tion in 9:29 PM ce] in source source source Urine data data data by Test strip Erythro 2+ NEG No Abnorma No Apr 10 cytes informa l informa 2016 [Presen tion in tion in 9:29 PM ce] in source source Urine data data Color YELLOW YELLOW No No No Apr 10 of informa informa informa 2017 Urine tion in tion in tion in 9:29 PM source source source data data data Glucose NEG No No No Apr 10 [Mass/vol informati informati informati 2017 9:29 ume] in on in on in on in PM Urine by source source source Test data data data strip Ketones NEGATIV NEG mg/dL No No Apr 10 E informa informa 2016 [Presen tion in tion in 9:29 PM ce] in source source Urine data data by Automat ed test strip Mucus 1+ NEG No Abnorma No Apr 10 [Presen informa l informa 2016 ce] in tion in tion in 9:29 PM Urine source source sedimen data data t by Light microsc opy Nitrite POSITIV NEG No Abnorma No Apr 10 E informa l informa 2016 [Presen tion in tion in 9:29 PM ce] in source source Urine data data by Test strip pH of 5.0 - 8.5 No Normal No Apr 10 Urine informati informati 2017 9:29 on in on in PM source source data data Protein NEG mg/dL High No Apr 10 [Mass/vol informati 2017 9:29 ume] in on in PM Urine by source Automated data test strip Erythro 3-5 0 rbc/hpf No No Apr 10 cytes informa informa 2016 [Presen tion in tion in 9:29 PM ce] in source source Urine data data sedimen t by Light microsc opy Specific 1.005 - No Normal No Apr 10 gravity 1.030 informati informati 2017 9:29 of Urine on in on in PM source source data data Epithel 10-20 0 - 5 #/hpf No No Apr 10 ial informa informa 2017 cells.s tion in tion in 9:29 PM quamous source source data data [Presen ce] in Urine sedimen t by Microsc opy high power field Urobili 1.0 NEG E.U./dL No No Apr 10 nogen informa informa 2016 [Presen tion in tion in 9:29 PM ce] in source source Urine data data by Test strip Leukocy [20 O wbc/hpf No No Apr 10 marco antonio wbc/hpf informa informa 2016 [#/volu ; 50 tion in tion in 9:29 PM me] in wbc/hpf source source Urine ] data data Urinalysis dipstick W Reflex Microscopic panel in Urine Observa Value Referen Units Interpr Notes Date tion ce etation Range Appeara SL CLEAR No No No Apr 10 nce of CLOUDY informa informa informa 2016 Urine tion in tion in tion in 9:29 PM source source source data data data Bilirub NEGATIV NEG No No No Apr 10 in E informa informa informa 2016 [Presen tion in tion in tion in 9:29 PM ce] in source source source Urine data data data by Test strip Erythro 2+ NEG No Abnorma No Apr 10 cytes informa l informa 2016 [Presen tion in tion in 9:29 PM ce] in source source Urine data data Color YELLOW YELLOW No No No Apr 10 of informa informa informa 2016 Urine tion in tion in tion in 9:29 PM source source source data data data Glucose NEG No No No Apr 10 [Mass/vol informati informati informati 2016 9:29 ume] in on in on in on in PM Urine by source source source Test data data data strip Ketones NEGATIV NEG mg/dL No No Apr 10 E informa informa 2016 [Presen tion in tion in 9:29 PM ce] in source source Urine data data by Automat ed test strip Mucus 1+ NEG No Abnorma No Apr 10 [Presen informa l informa 2016 ce] in tion in tion in 9:29 PM Urine source source sedimen data data t by Light microsc opy Nitrite POSITIV NEG No Abnorma No Apr 10 E informa l informa 2016 [Presen tion in tion in 9:29 PM ce] in source source Urine data data by Test strip pH of 5.0 - 8.5 No Normal No Apr 10 Urine informati informati 2017 9:29 on in on in PM source source data data Protein NEG mg/dL High No Apr 10 [Mass/vol informati 2016 9:29 ume] in on in PM Urine by source Automated data test strip Specific 1.005 - No Normal No Apr 10 gravity 1.030 informati informati 2017 9:29 of Urine on in on in PM source source data data Urobili 1.0 NEG E.U./dL No No Apr 10 nogen informa informa 2016 [Presen tion in tion in 9:29 PM ce] in source source Urine data data by Test strip CBC W Auto Differential panel in Blood Observa Value Referen Units Interpr Notes Date tion ce etation Range Basophils 0 - 0.2 K/MM3 Normal No Apr 10 informati 2016 9:19 [#/volume on in PM ] in source Blood by data Automated count Basophils 0.1 - 2.0 % Normal No Apr 10 informati 2016 9:19 leukocyte on in PM s in source Blood by data Automated count Eosinophi 0.0 - 0.4 K/mm3 Normal No Apr 10 ls informati 2016 9:19 [#/volume on in PM ] in source Blood by data Automated count Eosinophi 0.1 - % Normal No Apr 10 ls/100 12.0 informati 2016 9:19 leukocyte on in PM s in source Blood by data Automated count Granulocy 1.8 - 7.8 K/mm3 High No Apr 10 marco antonio informati 2016 9:19 [#/volume on in PM ] in source Blood by data Automated count Granulocy 37.0 - % High No Apr 10 marco antonio/100 80.0 informati 2016 9:19 leukocyte on in PM s in source Blood by data Automated count Hematocri 37.0 - % Normal No Apr 10 t [Volume 47.0 informati 2016 9:19 on in PM Fraction] source of Blood data Hemoglobi 12.2 - g/dL Normal No Apr 10 n 16.2 informati 2016 9:19 [Mass/vol on in PM ume] in source Blood data Lymphocyt 0.7 - 4.5 K/mm3 Normal No Apr 10 es informati 2016 9:19 [#/volume on in PM ] in source Unspecifi data ed specimen by Automated count Lymphocyt 10 - 50.0 % Low No Apr 10 es informati 2016 9:19 [#/volume on in PM ] in source Unspecifi data ed specimen by Automated count Erythrocy 27 - 31.2 pg Normal No Apr 10 te mean informati 2017 9:19 corpuscul on in PM ar source hemoglobi data n [Entitic mass] Erythrocy 31.8 - g/dl Normal No Apr 10 te mean 35.4 informati 2017 9:19 corpuscul on in PM ar source hemoglobi data n concentra tion [Mass/vol ume] by Automated count Erythrocy 82.2 - fl Normal No Oct 9 te mean 97.8 informati 2016 9:19 corpuscul on in PM ar volume source [Entitic data volume] by Automated count Monocytes 0.1 - 1.0 K/mm3 Normal No Apr 9 informati 2016 9:19 [#/volume on in PM ] in source Blood by data Automated count Monocytes 1.7 - 9.3 % Normal No Apr 10 informati 2016 9:19 leukocyte on in PM s in source Blood by data Automated count Platelet 7.4 - fl Low No Apr 9 mean 10.4 informati 2016 9:19 volume on in PM [Entitic source volume] data in Blood by Automated count Platelets 142 - 424 K/mm3 No No Apr 9 informati informati 2016 9:19 [#/volume on in on in PM ] in source source Blood data data Erythrocy 4.2 - 5.4 M/mm3 Normal No Apr 9 marco antonio informati 2016 9:19 [#/volume on in PM ] in source Amniotic data fluid Erythrocy 11.5 - % Normal No Apr 10 te 17.5 informati 2016 9:19 distribut on in PM ion width source [Entitic data volume] by Automated count Leukocyte 4.8 - K/MM3 High No Apr 9 s 10.8 informati 2016 9:19 [#/volume on in PM ] in source Blood data Differential panel, method unspecified - Observa Value Referen Units Interpr Notes Date tion ce etation Range Neutrophi 0 - 8 % Normal No Apr 9 ls.band informati 2016 9:19 form/100 on in PM leukocyte source s in data Blood by Automated count Eosinophi 0 - 3 % Normal No Apr 9 ls/100 informati 2016 9:19 leukocyte on in PM s in source Blood by data Manual count LYMPH 7 10 - 50 % Low No Apr 10 informa 2016 tion in 9:19 PM source data Monocytes 2 - 9 % Low No Apr 10 informati 2016 9:19 leukocyte on in PM s in source Blood by data Automated count Platele NORMAL No No No No Apr 9 ts informa informa informa informa 2017 [Presen tion in tion in tion in tion in 9:19 PM ce] in source source source source Blood data data data data by Light microsc opy Poikilo 1+ No No No No Apr 9 cytosis informa informa informa informa 2017 tion in tion in tion in tion in 9:19 PM [Presen source source source source ce] in data data data data Blood by Light microsc opy Neutrophi 42 - 76 % High No Apr 9 ls informati 2016 9:19 [#/volume on in PM ] in source Blood by data Automated count Cells No #CELLS No No Apr 9 Counted informati informati informati 2017 9:19 Total [#] on in on in on in PM in Blood source source source data data data Comprehensive metabolic 2000 panel in Serum or Plasma Observa Value Referen Units Interpr Notes Date tion ce etation Range Albumin/G 1.1 - 1.8 No Low No Apr 9 lobulin informati informati 2016 9:19 [Mass on in on in PM ratio] in source source Serum or data data Plasma Albumin 3.4 - 5.0 gm/dL Normal No Apr 9 [Mass/vol informati 2017 9:19 ume] in on in PM Serum or source Plasma data Alkaline 46 - 116 U/L High No Apr 9 phosphata informati 2017 9:19 se on in PM [Enzymati source c data activity/ volume] in Serum or Plasma Bilirubin 0.2 - 1.0 mg/dL Normal No Apr 9 .total informati 2016 9:19 [Mass/vol on in PM ume] in source Serum or data Plasma Urea 7 - 18 mg/dL High No Apr 9 nitrogen informati 2017 9:19 [Mass/vol on in PM ume] in source Serum or data Plasma Calcium 8.5 - mg/dL Normal No Apr 9 [Mass/vol 10.1 informati 2017 9:19 ume] in on in PM Serum or source Plasma data Chloride 98 - 107 mmoL/L Normal No Apr 9 [Moles/vo informati 2017 9:19 lume] in on in PM Serum or source Plasma data Carbon 21.0 - mmoL/L Normal No Apr 9 dioxide, 32.0 informati 2017 9:19 total on in PM [Moles/vo source lume] in data Serum or Plasma Creatinin 0.55 - mg/dL Normal No Apr 9 e 1.02 informati 2017 9:19 [Mass/vol on in PM ume] in source Serum or data Plasma Creatinin 50 - 200 ML/MIN Normal No Apr 9 e renal informati 2016 9:19 clearance on in PM source predicted data by Cockcroft -Gault formula Estimated 59- ML/MIN Low REFERENCE Apr 10 RANGE: 2016 9:19 glomerula >60 PM r ML/MIN/1. filtratio 73 SQUARE n rate METERSIf (GF this patient is -A merican, then multiply theresult by 1.210. Globulin 1.3 - 3.2 gm/dL High No Apr 10 [Mass/vol informati 2016 9:19 ume] in on in PM Serum source data Glucose 74 - 106 mg/dL High No Apr 10 [Mass/vol informati 2016 9:19 ume] in on in PM Serum or source Plasma data Potassium 3.5 - 5.1 mmoL/L Normal No Apr 102016 9:19 [Moles/vo on in PM lume] in source Serum or data Plasma Sodium 136 - 145 mmoL/L Low No Apr 10 [Moles/vo informati 2016 9:19 lume] in on in PM Serum or source Plasma data Aspartate 15 - 37 U/L Normal No Apr 102016 9:19 aminotran on in PM sferase source [Enzymati data c activity/ volume] in Serum or Plasma Alanine 12 - 78 U/L Normal No Apr 10 aminotran informati 2016 9:19 sferase on in PM [Enzymati source c data activity/ volume] in Serum or Plasma Protein 6.4 - 8.2 gm/dL High No Apr 10 [Mass/vol informati 2016 9:19 ume] in on in PM Serum or source Plasma data CBC W Auto Differential panel in Blood Observa Value Referen Units Interpr Notes Date tion ce etation Range Basophils 0 - 0.2 K/MM3 Normal No Mar 02 inform2016 2:20 [#/volume on in PM ] in source Blood by data Automated count Basophils 0.1 - 2.0 % Normal No Mar 02 informati 2016 2:20 leukocyte on in PM s in source Blood by data Automated count Eosinophi 0.0 - 0.4 K/mm3 Normal No Mar 02 ls informati 2016 2:20 [#/volume on in PM ] in source Blood by data Automated count Eosinophi 0.1 - % Normal No Mar 02 ls/100 12.0 informati 2016 2:20 leukocyte on in PM s in source Blood by data Automated count Granulocy 1.8 - 7.8 K/mm3 High No Mar 02 marco antonio informati 2016 2:20 [#/volume on in PM ] in source Blood by data Automated count Granulocy 37.0 - % High No Mar 02 marco antonio/100 80.0 informati 2016 2:20 leukocyte on in PM s in source Blood by data Automated count Hematocri 37.0 - % Normal No Mar 02 t [Volume 47.0 2016 2:20 on in PM Fraction] source of Blood data Hemoglobi 12.2 - g/dL Normal No Mar 02 n 16.2 informati 2016 2:20 [Mass/vol on in PM ume] in source Blood data Lymphocyt 0.7 - 4.5 K/mm3 Normal No Mar 02 es informati 2016 2:20 [#/volume on in PM ] in source Unspecifi data ed specimen by Automated count Lymphocyt 10 - 50.0 % Low No Mar 02 es inform2016 2:20 [#/volume on in PM ] in source Unspecifi data ed specimen by Automated count Erythrocy 27 - 31.2 pg Normal No Mar 02 te mean inform2016 2:20 corpuscul on in PM ar source hemoglobi data n [Entitic mass] Erythrocy 31.8 - g/dl Normal No Mar 02 te mean 35.4 informati 2016 2:20 corpuscul on in PM ar source hemoglobi data n concentra tion [Mass/vol ume] by Automated count Erythrocy 82.2 - fl Normal No Mar 02 te mean 97.8 inform2016 2:20 corpuscul on in PM ar volume source [Entitic data volume] by Automated count Monocytes 0.1 - 1.0 K/mm3 Normal No Mar 022016 2:20 [#/volume on in PM ] in [...]
--- OUTSIDE RECORDS SUMMARY | 2017-06-02 13:15 | External Medical Summary Rpt | CCD ---
Demographics Preferred Language Northern Irish Marital Status Unknown Restorationist Affiliation Unknown Race Unknown Ethnic Group Unknown Author Author , MENDY BROOKE Address Unknown Phone Immunization No patient found.
--- OUTSIDE RECORDS SUMMARY | 2017-06-02 13:15 | External Medical Summary Rpt | CCD ---
Demographics Preferred Language [place]alander Marital Status Unknown Gnosticism Affiliation Unknown Race Unknown Ethnic Group Unknown Author Author , MENDY BROOKE Address Unknown Phone Immunization No patient found.
--- OUTSIDE RECORDS SUMMARY | 2017-06-02 13:15 | External Medical Summary Rpt ---
Author Author MENDY Barbosa, [employer] Address Unknown Phone Unavailable [...]
[2017-06-02 13:17] LABS: HEMOGLOBIN 12.4 g/dL (12.2-16.2); LYMPH # 1.4 K/mm3 (0.7-4.5); LYMPH % 12.2 % (10-50.0)
--- NOTE | 2017-06-02 13:20 | Emergency Room Report ---
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 N Clinical Suspician of Infection? N Mental Status: 1 - Regular (Normal Baseline) Sepsis Risk:Low Sepsis Risk Have you (or family members/close friends) recently traveled outside the [place]? N If Yes, where/when: Have you had exposure to infectious disease within the past month? N TB? Other? Specify: Patient awakened with intense muscle spasm to left latissimus this AM. She denies trauma. She denies cephalgia; denies syncope or weakness. Has had recent URI and persistent cough, dry; is on nebs at home baseline. Hx of Afib, takes Eliquis. Pain is positional in nature. No calf pain. Has chronic edema. 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) Penicillins (Mild, 07/03/16) codeine (Mild, 07/03/16) promethazine (Mild, 07/03/16) Home Medications Active Scripts Metformin HCl (Metformin) 500 MG PO BID #60 TAB Ref 2 Prov: 04/13/14 Device (Oxygen (Concentrator)) 1 UNIT IH NIGHT ONLY #1 DEV Ref 5 Prov: 08/19/16 DILTIAZEM HCL (Cardizem Cd 300MG) 300 MG PO DAILY #30 CAP Ref 3 Prov: 03/03/17 Reported Medications Apixaban (Eliquis) 5 MG PO BID BENZONATATE (Benzonatate) 100 MG PO TID PRN COUGH Furosemide (Furosemide) 40 MG PO BIDL BUDESONIDE/FORMOTEROL FUMARATE (Symbicort 160-4.5 Mcg Inhaler) 2 PUFF IH BID Meloxicam (Meloxicam 7.5MG) 7.5 MG PO DAILY Potassium Chloride (Klor-Con M20) 20 MEQ PO BID CINNAMON BARK (Cinnamon) 500 MG PO BID Turmeric Root Extract (Turmeric) 500 MG PO BID Vitamin B Complex (B Complete) 1 EACH PO DAILY Atorvastatin Calcium (Atorvastatin) 40 MG PO QHS Losartan Potassium (Losartan 50MG) 50 MG PO BID Bisoprolol Fumarate 10 MG PO BID Gabapentin (Gabapentin 100MG) 100 MG PO BID Ascorbic Acid (Vitamin C) 1,000 MG PO DAILY History Medical History General CAD? No Angina: Yes MA: No Hypertension? Yes Hyperlipidemia? Yes CHF? Yes DVT? No PE? No COPD? Yes Asthma? Yes Anemia? No GERD? No Gastric ulcers? No GI Bleed? No Hernia? No Thyroid Problems? No Hypothyroidism? No CVA? No Seizures? No Diabetes? Yes Insulin Dependent: No Insulin Pump: No Home FSBS? Yes Renal Insuffiency? No End Stage Renal Disease? No UTI? No Stones? No BPH? No GB Disease: No Nephritic Syndrome? No Asplenia? No Hepatitis? No Sickle Cell Disease? No Arthritis? Yes Migraines? No Cataracts? No Glaucoma? No MRSA? No HIV? No TB? No Anxiety? No Depression? No Cancer? No More? 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 N/A Family History Family Hx Diabetes Yes CAD Yes Hypertension Yes Hyperlipidemia Yes Cancer No TB No Social History Smoking Hx Smoker: Never Smoker Tobacco: No Packs/day N/A Alcohol Alcohol: No Review of Systems All Other Systems Reviewed and Negative Respiratory see HPI Cardiovascular see HPI, denies chest pain, denies palpitations (hx Afib) Musculoskeletal see HPI Physical Exam Vital Signs Vital Signs Date Time Temp Pulse Resp B/P Pulse O2 O2 Flow FiO2 Ox Delivery Rate 06/02 1304 98.1 73 16 139/79 98 General Appearance normal appearance, WD/WN, no apparent distress, obese Eye Exam - bilateral eye normal exam, bilateral eye PERRL, bilateral eye EOMI Neck normal inspection, supple, full range of motion, tender lateral, I am able to reproduce her pain by palpation at insertion of lat on L and proceeding along the muscle bed laterally. She has NO meningismus. Neg Adson's. Her presentation is c/w torticollis. Pain worse with turning head to either side. Respiratory Status Yes: trachea midline, chest symmetrical, non tender chest, non productive cough. No: respiratory distress, tender on palpation, use of accessory muscles, pain on inspiration, pain on expiration, productive cough. Lung Sounds bilateral: normal breath sounds, wheezing (mild end exp whz o/w nl). Cardiovascular normal exam, no gallop, no JVD, no murmur, no rub, normal peripheral pulses (irr irr w/ hx Aflutter) Peripheral Pulses Pulses normal Yes (irr irr w/ hx Aflutter) Gastrointestinal normal bowel sounds, normal exam, non tender, soft, no organomegaly, no pulsatile mass, no guarding, no rebound Extremities non-tender, normal range of motion, normal inspection, normal capillary refill, no calf tenderness, pedal edema, swelling (nonpitting; baseline for pt) Strength 5 Upper Ext (L), 5 Upper Ext (R), 5 Lower Ext (L), 5 Lower Ext (R) Neurologic alert, normal exam, no motor/sensory deficits, oriented x 3 Glascow Coma Scale Glascow Coma Scale Response Value EYE response: 4 Spontaneously 4 MOTOR response: 6 OBEYS 6 VERBAL response: 5 Oriented & Converses 5 Total 15 Skin intact, normal color, warm/dry, no rash cons.w/shingles Medical Decision Making LABS/Meds/Orders Pt receiving controlled substance in ED? No Stan was queried for this patient? No Results/Orders Laboratory Tests 06/02/17 1310: Sodium 139, Potassium 4.9, Chloride 103, Carbon Dioxide 27, BUN 18, Creatinine 0.9, Estimated Creat Clear 157, Estimated GFR (MDRD) 65, Glucose 210 H, Calcium 9.2, Total Bilirubin 0.2, AST 18, ALT 24, Alkaline Phosphatase 107, Creatine Kinase 38, CK-MB (CK-2) Rel Index 1.3, CK and CKMB Interp 0.5, Troponin I < 0.02 , Total Protein 7.6, Albumin 3.6, Globulin 4.0 H, Albumin/Globulin Ratio 0.9 L , WBC 11.1 H, RBC 4.25, Hgb 12.4, Hct 38.4, MCV 90.5, RDW 14.4, Plt Count 335, MPV 7.5, Gran % 79.6, Gran # 8.8 H, Lymphocytes % 12.2, Monocytes % 4.5, Eosinophils % 3.3, Basophils % 0.4, Lymphocytes # 1.4, Monocytes # 0.5, Eosinophils # 0.4, Basophils # 0.1, PUBS MCHC 32.2, MCH 29.1 Current Medication Orders Sig/Melissa Start time Last Medication Dose Route Stop Time Status Admin Miscellaneous 0 .STK-MED ONE 06/02 1350 DC XX Acetaminophen 0 .STK-MED ONE 06/02 1339 DC PO Albuterol/Ipratropium 0 .STK-MED ONE 06/02 1322 DC INH Acetaminophen 650 MG ONCE ONE 06/02 1315 DC 06/02 PO 06/02 1316 1344 Albuterol/Ipratropium 3 ML ONCE ONE 06/02 1315 DC INH 06/02 1316 Sodium Chloride 10 ML PRN PRN 06/02 1315 AC IV 06/03 1311 Orders Procedure Date/time Status Decision to admit 06/02 1407 Active CHEST-PORTABLE 06/02 1331 Active RT REQUEST DUONEB 06/02 1313 Active ELECTROCARDIOGRAM REQUEST 06/02 1311 Active IV SALINE LOCK 06/02 1311 Active CBC WITH AUTO DIFF 06/02 1311 Complete CARDIAC ENZYMES 06/02 1311 Complete CHEM 12 PROFILE 06/02 1311 Complete 12 LEAD EKG-NUBIA (INITIAL) 06/02 1310 Active CM/EKG CM/EKG EKG rate, rhythm, no evid. of ischemic chgs, no ectopy, normal QRS, normal EKG (Afib rate controlled 70-100's) XRAY/CT/US XRAY/CT/US XRAY chest XR interpretation by reviewed by me Xray Results abnormal (RML infiltrate) Progress ED Progress Notes Date 06/02/17 Time 1409 Comment Feeling better s/p nebs. States was recently on Levaquin and Medrol, last dose one week ago. Will Rx Z'max and Medrol, f/u Dr. Vega. Stable at d/c w/ no complaints. Departure Departure Time of Disposition 1409 Disposition DC Home or Self Care(routine) Clinical Impression Primary Impression: RML pneumonia Qualifiers: Pneumonia type: due to unspecified organism Qualified Code: J18.1 - Lobar pneumonia, unspecified organism Secondary Impressions: Torticollis, acute Condition STABLE Referrals Jhonatan Vega MD (PCP/Family) Patient Instructions Pneumonia-Adult, Torticollis Additional Instructions Naproxen, Zithromax, Medrol, see Dr. Vega in two to three days for recheck. Discharge Counseling Counseled pt/family regarding diagnosis, test results, medications/RX, home care, follow up needs Prescriptions Current Visit Scripts NAPROXEN (NAPROXEN 500MG TAB) 500 MG PO BID #10 TAB take sparingly for breakthrough pain Methylprednisolone (Medrol Dose Hemanth) 4 MG PO UD #1 HEMANTH TAKE DIRECTED ON PACKAGING Azithromycin (Avpak Azithromycin) 250 MG PO DAILY #6 TAB one Z pack over five days as directed ED Critical Care Critical Care No at 1410
[2017-06-02 13:55] LABS: BUN 18 mg/dL (7-18); GFR (ESTIMATED) 65 ML/MIN (59-)
[2017-06-02] MEDS ORDERED: MEDROL 4MG. DOSE4 MG PO (14:12)
[2017-06-02] MEDS ORDERED: AVPAK AZITHROM250 MG PO (14:12)
[2017-06-02] MEDS ORDERED: NAPROXEN SODIU500 MG PO (14:12)
[2017-06-02 14:17] VITALS: BP 139/79
--- NOTE | 2017-06-02 14:27 | RADIOLOGY REPORT PS360 ---
CHEST-PORTABLE HISTORY: cough ORDERING PHYSICIAN: Keri Walters MD PATIENT AGE: 57 years COMPARISON: 04/27/2017 FINDINGS: There is mild cardiomegaly without failure.. There is mild patient rotation with increased markings in the right lung base medially probably due to overlapping vessels. No definite lobar consolidation or collapse. No acute bony anomalies. IMPRESSION: Cardiomegaly otherwise negative
== END 2017-06-02 14:30 | disposition home or self-care (01) ==
LOC: ER 13:02
PROVIDERS: Emergency Medicine
DX: J18.1 Lobar pneumonia, unspecified organism (principal); G24.3 Spasmodic torticollis; I48.2 Chronic atrial fibrillation; Z79.01 Long term (current) use of anticoagulants; Z79.899 Other long term (current) drug therapy; I10 Essential (primary) hypertension; E78.5 Hyperlipidemia, unspecified; Z88.0 Allergy status to penicillin; Z88.6 Allergy status to analgesic agent; Z88.7 Allergy status to serum and vaccine